=== PATIENT | female | born 1980 | race Caucasian/White ===

== ENCOUNTER 2017-02-15 05:35 | Day surgery (SDC) | payer MEDICAID ==
--- NOTE | 2017-02-14 09:52 | HPF ---
CHIEF COMPLAINT Bilateral hand pain and numbness. HISTORY OF PRESENT ILLNESS This is a 36-year-old female who has a 8-month history of gradual worsening burning pain and numbness in both of her hands. It usually affects her index, middle and ring fingers. Small finger is always spared. It is aggravated with activities such as driving. She frequently wakes up in the middle of the night with the hands numb. She has tried bracing at night which has not improved her symptoms. She has tried stretching exercises and physical therapy. She has never had surgery on her wrists and denies any injury. She does get some radiation of her symptoms up into her elbow. Her past medical history, surgical history, illnesses, medications, allergies, all reviewed and updated in the EMR. Please refer to that REVIEW OF SYSTEMS There was no fever, chills, skin infections, rashes, or seizures. NEUROLOGIC: See HPI. PHYSICAL EXAMINATION GENERAL: Alert and oriented 36-year-old female. UPPER EXTREMITIES: Shows the skin to be intact without lesions. She has good range of motion of both hands, wrists and all of her digits. She has a negative Tinel's sign at the wrist and at the elbow. She has a negative Wartenberg's and Froment signs bilaterally. She has no muscular atrophy in either hand bilaterally. She has a good radial pulse. Has positive median nerve compression test. She has positive Phalen's test. She has no cervical nerve impingement signs. X-RAYS Has normal x-rays of both hands. Nerve conduction studies reviewed. They show mild bilateral carpal tunnel syndrome. ASSESSMENT Bilateral carpal tunnel syndrome. PLAN The patient has failed conservative treatment. Continues to have significant numbness and interruption of her daily function. She tried a steroid injection in the carpal tunnel which was also ineffective. Due to failure of conservative methods, she is being admitted for elective left carpal tunnel release. The procedure and expected recovery has been explained to her. Questions have been answered to her satisfaction. We will proceed with a left carpal tunnel release on 02/15/2017. FADUMO
[~2017-02-15] VITALS: Ht 144.8 cm; Wt 103.8 kg
[~2017-02-15 05:35] MED LIST: ALBU90AE PO; CITA40TA14 PO; FAMO20TA8 PO; FLUT1DIS3 INH; LEVO7.5T7 PO; MONT10TA25 PO; PANT40TA27 PO; ZOLP5TAB8 PO
--- OUTSIDE RECORDS SUMMARY | 2017-02-15 05:40 | XMS REPORT | Continuity of Care Document ---
Author Author [facility] Organization [facility] Address Unknown Phone Unavailable Care Team Providers Care Tie In Hand Name Role Phone JOSE CRUZ MD Primary Care Physician [phone] Insurance Providers Payer Name Policy Number Subscriber Name Relationship [facility] State Plan [id number] Angelo Mcnally 18 Self Advance Directives Directive Response Recorded Date/Time Ordered Resuscitation Status Full Code 05/22/14 1:48pm Resuscitation Documents on File No 07/31/14 3:53pm Problems Medical Problems Problem Onset Date Status Cellulitis Unknown Active Medications Medication Dose Route Sig Days/Qty Instructions Order Date Discontinued Date Status Vits W-Ca,Fe,Fa(<1MG) 1 Tab PO DAILY 09/08/09 06/10/10 Discontinued [Acidphex] PO DAILY 09/08/09 06/10/10 Discontinued [None] 06/10/10 05/12/13 Discontinued Metronidazole 250 Mg PO 05/12/13 08/18/13 Discontinued Prochlorperazine Maleate 10 Mg PO PRN 05/12/13 05/12/13 Discontinued Promethazine Hcl 25 Mg PO PRN 05/12/13 08/18/13 Discontinued Paroxetine Hcl 40 Mg PO DAILY 05/12/13 08/18/13 Discontinued Lansoprazole 30 Mg PO TWICE A DAY 05/12/13 Active Montelukast Sodium 10 Mg PO BEDTIME 08/18/13 Active Venlafaxine Hcl 75 Mg PO TWICE A DAY 05/22/14 Active Docusate Sodium 100 Mg PO DAILY 05/22/14 Active Nortriptyline Hcl 25 Mg PO DAILY 05/22/14 Active Fluticasone/Salmeterol 1 Puff INH TWICE A DAY 07/31/14 Active Fluticasone Propionate 1 [place] NS TWICE A DAY 07/31/14 Active Cetirizine HCl 10 Mg PO DAILY 07/31/14 Active Dicyclomine HCl 10 Mg PO DAILY 07/31/14 Active Bupropion HCl 150 Mg PO TWICE A DAY 08/02/14 Active Social History Social History Problem Response Recorded Date/Time Smoking Status Never smoker 05/22/2014 1:19pm When did patient STOP smoking? AGE 31 07/31/2014 3:33pm Chewing Tobacco Status No 05/22/2014 1:19pm Hx Substance Use No 07/31/2014 3:33pm Hx Alcohol Use No 07/31/2014 3:33pm Has the pt used tobacco in the last 12 months No 07/31/2014 3:33pm Query Response Start Date Stop Date Smoking Status Never smoker Hospital Discharge Instructions No hospital discharge instructions. Plan of Care No plan of care. Functional Status No functional status results. Allergies, Adverse Reactions, Alerts Allergen Type Severity Reaction Status Last Updated Codeine Allergy Unknown DIFFICULTY TO BREATH Active 05/22/14 Immunizations Name Given Type Hx Influenza Vaccination Y FALL 2012 Historical Hx Pneumococcal Vaccination No Historical Hx Influenza Vaccination Y FALL 2012 Historical Vital Signs Acute Vital Signs Vital Response Date/Time Temperature (Fahrenheit) 98.0 deg F (96.8 - 99.1) Temperature (Calculated Celsius) 36.35647 degrees C (36.0 - 37.3) Temperature Source Temporal Pulse Rate (adult) 84 bpm (60 - 100) Respiratory Rate 16 breaths/min (10 - 20) O2 Sat by Pulse Oximetry 98 % (90 - 100) Oxygen Delivery Method Room Air Blood Pressure 108/61 mm Hg Blood Pressure Source Automatic Cuff Height 4 ft 11 in Weight 229 lb Body Mass Index 46.0 kg/m^2 Results Test Source Date Result Interp. Ref. Range Comments Alanine Aminotransferase (ALT/SGPT) August 18, 2013 7:50pm 69 U/L H 9 -52 Albumin August 18, 2013 7:50pm 4.4 G/DL N 3.5-5.0 Albumin/Globulin Ratio August 18, 2013 7:50pm 1.4 RATIO N 1.1-2.2 Alkaline Phosphatase August 18, 2013 7:50pm 62 U/L N 38-126 Amylase Level March 08, 2014 3:01pm 57 U/L N 30-110 Anion Gap August 01, 2014 4:08pm 11 MEQ/L N 5-15 COMMENT UA ALSO NEEDED Aspartate Amino Transf (AST/SGOT) August 18, 2013 7:50pm 38 U/L H 14- 36 BUN/Creatinine Ratio August 01, 2014 4:08pm 16 RATIO N 6-26 COMMENT UA ALSO NEEDED Band Neutrophils # May 12, 2013 7:03pm 0.1 T/MM3 - Band Neutrophils % May 12, 2013 7:03pm 1.0 % N 0-6 Basophils # (Auto) August 01, 2014 4:08pm 0.1 T/MM3 N 0-0.2 COMMENT [facility] TO LAB Basophils # (Manual) October 25, 2009 12:14am 0.0 T/MM3 N 0-0.2 Basophils % (Manual) October 25, 2009 12:14am 0.0 % N 0-2 Basophils (%) (Auto) August 01, 2014 4:08pm 0.5 % N 0-2 COMMENT [facility] PT TO LAB Blood Urea Nitrogen August 01, 2014 4:08pm 11.0 MG/DL N 7-17 COMMENT UA ALSO NEEDED C. difficile Toxin B Gene (PCR) May 12, 2013 7:03pm Negative - If Toxin A is clinically indicated, treat accordingly. Calcium Level August 01, 2014 4:08pm 9.2 MG/DL N 8.4-10.2 COMMENT UA ALSO NEEDED Calculated Osmolality August 01, 2014 4:08pm 269 MOSM/KG N 261-280 COMMENT UA ALSO NEEDED Carbon Dioxide Level August 01, 2014 4:08pm 29 MEQ/L N 22-30 COMMENT UA ALSO NEEDED Chemistry Specimen Hemolysis August 01, 2014 4:08pm < 15 0-25 0-25 : No Hemolysis.26-70: Slight Hemolysis - can falsely elevate K and Urine Protein. 71-285: Moderate Hemolysis - can falsely elevate K, Troponin I, CA 19-9, PTH, CSF GLucose, and Urine Protein, and can falsely decrease Phenytoin. 286-999: Gross Hemolysis - can falsely elevate K, Troponin I, CA 19-9, PTH, CSF Glucose, and Urine Protine, and can falsely decrease Phenytoin. Recommend specimen recollection. Chloride Level August 01, 2014 4:08pm 101 MEQ/L N 98-107 COMMENT UA ALSO NEEDED Cholesterol Level May 26, 2011 11:20am 134 MG/DL N 132-199 Cholesterol/HDL Ratio May 26, 2011 11:20am 3.4 RATIO N 0-4.0 Creatinine August 01, 2014 4:08pm 0.7 MG/DL N 0.7-1.2 COMMENT UA ALSO NEEDED Differential Total Cells Counted September 08, 2009 6:30pm 100 % - Eosinophils # (Auto) August 01, 2014 4:08pm 0.3 T/MM3 N 0-0.5 COMMENT [facility] PT TO LAB Eosinophils # (Manual) October 25, 2009 12:14am 0.3 T/MM3 N 0-0.5 Eosinophils % (Manual) October 25, 2009 12:14am 2.0 % N 0-4 Eosinophils (%) (Auto) August 01, 2014 4:08pm 2.6 % N 0-4 COMMENT [facility] TO LAB Free Thyroxine May 26, 2011 11:20am 1.07 NG/DL N 0.78-2.19 Globulin August 18, 2013 7:50pm 3.2 G/DL N 2.4-3.6 Glomerular Filtration Rate Calc August 01, 2014 4:08pm 96 - COMMENT UA ALSO NEEDED Glucometer August 02, 2014 10:47am 88 mg/dL N 65-110 Glucose Level August 01, 2014 4:08pm 86 MG/DL N 65-110 COMMENT UA ALSO NEEDED Group A Streptococcus Screen June 10, 2010 1:28pm Positive - Has specimen been collected/obtained? Y HDL Cholesterol Direct May 26, 2011 11:20am 39 MG/DL L 40-60 Helicobacter pylori IgG Antibody April 16, 2008 7:21pm Sent out - Hematocrit August 01, 2014 4:08pm 38.3 % N 36-46 COMMENT [facility] TO LAB Hemoglobin August 01, 2014 4:08pm 12.6 GM/DL N 12-16 COMMENT [facility] TO LAB Hepatitis A IgM Antibody November 04, 2011 8:41am Negative - Hepatitis B Core IgM Antibody November 04, 2011 8:41am Negative - Hepatitis B Surface Antigen November 04, 2011 8:41am Negative - Hepatitis C Antibody November 04, 2011 8:41am Negative - Human Chorionic Gonadotropin, Qual May 11, 2008 2:54pm Negative - Icterus Index August 01, 2014 4:08pm < 2 0-7 COMMENT UA ALSO NEEDED Immature Granulocyte # (Auto) August 01, 2014 4:08pm 0.04 T/MM3 H 0.00-0.03 COMMENT [facility] TO LAB Immature Granulocyte % (Auto) August 01, 2014 4:08pm 0.4 % N 0.0-0.5 COMMENT [facility] TO LAB LDL Cholesterol, Calculated May 26, 2011 11:20am 74.8 N 66-159 Lab Scanned Report March 08, 2014 4:52pm LAB TEST FORM REQUEST [id number] - Lipase March 08, 2014 3:01pm 64 U/L N 23-300 Lymphocytes # (Auto) August 01, 2014 4:08pm 3.7 T/MM3 N 1-4.8 COMMENT [facility] TO LAB Lymphocytes # (Manual) May 12, 2013 7:03pm 2.6 T/MM3 N 1-4.8 Lymphocytes % (Manual) May 12, 2013 7:03pm 32.0 % N 23-45 Lymphocytes (%) (Auto) August 01, 2014 4:08pm 33.1 % N 23-45 COMMENT [facility] TO LAB Mean Corpuscular Hemoglobin August 01, 2014 4:08pm 30.7 UUG N 26-34 COMMENT [facility] TO LAB Mean Corpuscular Hemoglobin Concent August 01, 2014 4:08pm 32.9 GM/DL N 31-37 COMMENT [facility] TO LAB Mean Corpuscular Volume August 01, 2014 4:08pm 93.2 UM3 N 80-100 COMMENT [facility] TO LAB Mean Platelet Volume August 01, 2014 4:08pm 9.3 UM3 L 9.4-12.4 COMMENT [facility] TO LAB Monocytes # (Auto) August 01, 2014 4:08pm 0.8 T/MM3 N 0-0.8 COMMENT [facility] TO LAB Monocytes # (Manual) May 12, 2013 7:03pm 0.2 T/MM3 N 0-0.8 Monocytes % (Manual) May 12, 2013 7:03pm 3.0 % N 0-9.0 Monocytes (%) (Auto) August 01, 2014 4:08pm 6.8 % N 0-9.0 COMMENT [facility] TO LAB Neutrophils # (Auto) August 01, 2014 4:08pm 6.3 T/MM3 N 1.8-7.7 COMMENT [facility] TO LAB Neutrophils # (Manual) May 12, 2013 7:03pm 5.2 T/MM3 N 1.8-7.7 Neutrophils % (Manual) May 12, 2013 7:03pm 64.0 % N 33-66 Neutrophils (%) (Auto) August 01, 2014 4:08pm 56.6 % N 33-66 COMMENT [facility] TO LAB Platelet Count August 01, 2014 4:08pm 296 T/MM3 N 130-400 COMMENT [facility] TO LAB Potassium Level August 01, 2014 4:08pm 3.6 MEQ/L N 3.6-5 COMMENT UA ALSO NEEDED RDW Standard Deviation August 01, 2014 4:08pm 41.4 FL N 36.9-50.2 COMMENT [facility] TO LAB Red Blood Count August 01, 2014 4:08pm 4.11 M/MM3 N 4.00-5.20 COMMENT [facility] TO LAB Sodium Level August 01, 2014 4:08pm 141 MEQ/L N 134-144 COMMENT UA ALSO NEEDED Stool Occult Blood May 12, 2013 6:48pm Negative - Has specimen been collected/obtained? Y Stool for White Cells May 12, 2013 7:03pm Negative - Has specimen been collected/obtained? Y Tests Not Done April 27, 2009 3:44pm Not done - Has specimen been collected/obtained? Y Thyroid Stimulating Hormone (TSH) May 26, 2011 11:20am 2.26 MIU/L N 0.47-4.68 Total Bilirubin August 18, 2013 7:50pm 0.30 MG/DL N 0.20-1.30 Total Protein August 18, 2013 7:50pm 7.6 G/DL N 6.3-8.2 Triglycerides Level May 26, 2011 11:20am 101 MG/DL N 35-135 Troponin I March 08, 2014 3:01pm < 0.012 ng/ml 0-0.12 Turbidity August 01, 2014 4:08pm < 20 0-20 COMMENT UA ALSO NEEDED Urine Bacteria August 01, 2014 4:11pm 4+ H - Has specimen been collected/obtained? YCOMMENT SERUM IF UNABLE TO VOID Urine Bilirubin August 01, 2014 4:11pm Negative - Has specimen been collected/obtained? YCOMMENT SERUM IF UNABLE TO VOID Urine Blood August 01, 2014 4:11pm Negative - Has specimen been collected/obtained? YCOMMENT SERUM IF UNABLE TO VOID Urine Collection Type August 01, 2014 4:11pm Cleancatch-midstream - Has specimen been collected/obtained? YCOMMENT SERUM IF UNABLE TO VOID Urine Color August 01, 2014 4:11pm Yellow - Has specimen been collected/obtained? YCOMMENT SERUM IF UNABLE TO VOID Urine Culture Indicated August 01, 2014 4:11pm Cult reflexed &setup - Has specimen been collected/obtained? YCOMMENT SERUM IF UNABLE TO VOID Urine Glucose (UA) August 01, 2014 4:11pm Negative - Has specimen been collected/obtained? YCOMMENT SERUM IF UNABLE TO VOID Urine Ketones August 01, 2014 4:11pm Negative - Has specimen been collected/obtained? YCOMMENT SERUM IF UNABLE TO VOID Urine Leukocyte Esterase August 01, 2014 4:11pm Trace H - Has specimen been collected/obtained? YCOMMENT SERUM IF UNABLE TO VOID Urine Mucus August 01, 2014 4:11pm Present - Has specimen been collected/obtained? YCOMMENT SERUM IF UNABLE TO VOID Urine Nitrite August 01, 2014 4:11pm Positive H - Has specimen been collected/obtained? YCOMMENT SERUM IF UNABLE TO VOID Urine Protein August 01, 2014 4:11pm Negative - Has specimen been collected/obtained? YCOMMENT SERUM IF UNABLE TO VOID Urine RBC August 01, 2014 4:11pm 0-1 /HPF - Has specimen been collected/obtained? YCOMMENT SERUM IF UNABLE TO VOID Urine Specific [place] August 01, 2014 4:11pm 1.025 - Has specimen been collected/obtained? YCOMMENT SERUM IF UNABLE TO VOID Urine Squamous Epithelial Cells August 01, 2014 4:11pm >50 - Has specimen been collected/obtained? YCOMMENT SERUM IF UNABLE TO VOID Urine Turbidity August 01, 2014 4:11pm Cloudy - Has specimen been collected/obtained? YCOMMENT SERUM IF UNABLE TO VOID Urine Urobilinogen August 01, 2014 4:11pm 1.0 EU/DL - Has specimen been collected/obtained? YCOMMENT SERUM IF UNABLE TO VOID Urine WBC August 01, 2014 4:11pm 10-20 /HPF H - Has specimen been collected/obtained? YCOMMENT SERUM IF UNABLE TO VOID Urine pH August 01, 2014 4:11pm 6.0 - Has specimen been collected/ obtained? YCOMMENT SERUM IF UNABLE TO VOID VLDL Cholesterol May 26, 2011 11:20am 20.2 MG/DL N 0-28 White Blood Count August 01, 2014 4:08pm 11.1 T/MM3 H 4.5-11.0 COMMENT [facility] PT TO LAB Stool Culture Stool May 12, 2013 7:03pm Urine Culture Urine, Clean Catch-Midstream August 01, 2014 4:43pm Gram Negative [facility] Procedures Procedure Status Date Provider(s) COLONOSCOPY AND BIOPSY completed 05/23/14 BK BROWN MD, FACS, CWS EGD DIAGNOSTIC BRUSH WASH completed 05/23/14 BK BROWN MD, FACS, CWS Hysteroscopy with hydrothermal ablation of endometrium completed 08/02/14 VIVEK FERGUSON MD Endometrial ablation completed 08/02/14 VIVEK FERGUSON MD
--- OUTSIDE RECORDS SUMMARY | 2017-02-15 05:40 | XMS REPORT | Referral Summary ---
Author Author [facility] Organization [facility] Address Unknown Phone Unavailable Care Team Providers Care Scrub Wheel Operator Name Role Phone Ivory Nair Primary Care Physician [phone] Encounter Date(s): 08/19/16 - 08/19/16 [facility] [address] [place] [address]- Discharge Diagnosis: Anxiety Discharge Diagnosis: Elevated liver enzymes Discharge Diagnosis: Lumbago without sciatica Discharge Diagnosis: Chronic insomnia Discharge Diagnosis: Chronic neck pain Discharge Diagnosis: Fluid retention Discharge Diagnosis: Paresthesia of arm Discharge Disposition: 01-Home or Self Care Attending Physician: Paige Wan APRN Admitting Physician: Paige Wan APRN Vital Signs Most recent to 1 oldest [Reference Range]: Temperature Tympanic 36.7 degC [36.6-38.1 degC] (08/19/16 9:25 AM) Peripheral Pulse 92 bpm Rate [60-100 bpm] (08/19/16 9:25 AM) Blood Pressure 102/68 mmHg [90-140/60-90 mmHg] (08/19/16 9:25 AM) Problem List Condition Effective Dates Status Health Status Informant Allergic Active rhinitis(Confirmed) Anxiety(Confirmed) Active Anxiety state Active (finding)(Confirmed) Chronic ethmoidal Active sinusitis(Confirmed) Gastroesophageal Active reflux disease (disorder)(Confirmed ) Insomnia, Active persistent(Confirmed ) Irritable bowel Active syndrome(Confirmed) Irritable bowel Active syndrome (disorder)(Confirmed ) Elevated liver Active enzymes(Confirmed) Asthma without Active status asthmaticus (disorder)(Confirmed ) Obesity Active (disorder)(Confirmed ) Overweight(Confirmed < 04/26/14 Resolved ) Prediabetes(Confirme Active d) Depression(Confirmed Active ) Seasonal Active allergies(Confirmed) Tonsillitis(Confirme Resolved d) Allergies, Adverse Reactions, Alerts Substance Reaction Severity Status codeine Chest tightness Active Medications Advair Diskus 250 mcg-50 mcg inhalation powder 1 puffs, Inhalation, BID, # 60 Each, 11 Refill(s), Pharmacy: [facility] # [id number] Start Date: 05/26/16 Status: Ordered Ambien 10 mg oral tablet 10 mg 1 tabs, Oral, Bedtime (once a day), as needed for sleep, # 30 tabs, 0 Refill(s) Start Date: 08/09/16 Status: Ordered Bentyl 10 mg oral capsule 10 mg 1 caps, Oral, TID, # 90 caps, 1 Refill(s), Pharmacy: [facility] # [id number], 1 caps Oral TID Start Date: 04/11/15 Status: Ordered LORazepam 0.5 mg oral tablet 0.5 mg 1 tabs, Oral, q12hr, s dillons, # 30 tabs, 0 Refill(s) Start Date: 08/19/16 Status: Ordered Mobic 15 mg oral tablet 15 mg 1 tabs, Oral, Daily, # 30 tabs, 0 Refill(s), Pharmacy: [facility] # [id number], 1 tabs Oral Daily Start Date: 08/19/16 Status: Ordered montelukast 10 mg oral tablet See Instructions, TAKE ONE TABLET BY MOUTH EVERY EVENING, # 90 tabs, 3 Refill(s) , Pharmacy: [facility] #[id number], TAKE ONE TABLET BY MOUTH EVERY EVENING Start Date: 08/02/16 Status: Ordered pantoprazole 40 mg oral delayed release tablet See Instructions, TAKE ONE TABLET BY MOUTH DAILY, # 30 tabs, 11 Refill(s), eRx: [facility] #[id number], TAKE ONE TABLET BY MOUTH DAILY Start Date: 03/30/16 Status: Ordered Pepcid AC Maximum Strength 20 mg oral tablet See Instructions, TAKE ONE TABLET BY MOUTH TWICE A DAY, # 90 tabs, 2 Refill(s), Pharmacy: [facility] #[id number], TAKE ONE TABLET BY MOUTH TWICE A DAY Start Date: 06/16/16 Status: Ordered Ventolin HFA 90 mcg/inh inhalation aerosol See Instructions, INHALE ONE TO TWO PUFFS BY MOUTH EVERY 4 HOURS NEEDED, # 18 g, 2 Refill(s), Pharmacy: [facility] #[id number], INHALE ONE TO TWO PUFFS BY MOUTH EVERY 4 HOURS NEEDED Start Date: 08/02/16 Status: Ordered Wellbutrin SR 200 mg/12 hours oral tablet, extended release 200 mg 1 tabs, Oral, BID, # 60 tabs, 0 Refill(s), Pharmacy: [facility] # [id number], 1 tabs Oral BID Start Date: 04/21/16 Status: Ordered Results Hematology Most recent to 1 oldest [Reference Range]: WBC [4.8-10.8 10.5 10*3/uL 10*3/uL] (08/19/16 10:19 AM) RBC [4.00-5.20] 4.16 (08/19/16 10:19 AM) Hgb [12.0-16.0 12.6 gm/dL gm/dL] (08/19/16 10: AM) Hct [37.0-47.0 %] 38.2 % (08/19/16 10: AM) MCV [82.0-99.0 fL] 91.8 fL (08/19/16 10: AM) MCH [27.0-32.0 pg] 30.3 pg (08/19/16 10:19 AM) MCHC [32.0-36.0 33.0 gm/dL gm/dL] (08/19/16 10:19 AM) RDW [11.5-14.5 %] 13.6 % (08/19/16 10:19 AM) Platelet [150-400 289 10*3/uL 10*3/uL] (08/19/16 10:19 AM) MPV [8.8-14.8 fL] 9.6 fL (08/19/16 10:19 AM) Immature 0.3 % Granulocytes (08/19/16 10:19 AM) [0.0-1.0 %] Neutrophils [51-75 54 % %] (08/19/16 10:19 AM) Lymphocytes [20-46 35 % %] (08/19/16 10:19 AM) Monocytes [4-11 %] 7 % (08/19/16 10:19 AM) Eosinophils [0-4 %] 5 % *HI* (08/19/16 10:19 AM) Basophils [0-2 %] 0 % (08/19/16 10:19 AM) Neutro Absolute 5.65 10*3 [1.90-7.00 10*3] (08/19/16 10:19 AM) Lymph Absolute 3.64 10*3 [0.80-3.30 10*3] *HI* (08/19/16 10:19 AM) [place] Absolute 0.70 10*3 [0.30-1.00 10*3] (08/19/16 10:19 AM) Eos Absolute 0.47 10*3 [0.00-0.50 10*3] (08/19/16 10:19 AM) Baso Absolute 0.04 10*3 [0.00-0.20 10*3] (08/19/16 10:19 AM) Sed Rate [0-23] 22 (08/19/16 10: AM) Chemistry Most recent to 1 oldest [Reference Range]: Sodium Lvl [135-144 138 mEq/L mEq/L] (08/19/16 10: AM) Potassium Lvl 3.9 mEq/L [3.5-5.2 mEq/L] (08/19/16 10:19 AM) Chloride [99-111 105 mEq/L mEq/L] (08/19/16 10: AM) CO2 [22-31 mEq/L] 27 mEq/L (08/19/16 10: AM) AGAP [3-20] 6 (08/19/16 10:19 AM) BUN [7-19 mg/dL] 13 mg/dL (08/19/16 10: AM) Glucose Lvl [70-99 122 mg/dL mg/dL] *HI* (08/19/16 10:19 AM) Creatinine Lvl 0.73 mg/dL [0.57-1.11 mg/dL] (08/19/16 10:19 AM) eGFR [>60 mL/min] >60 mL/min 1 (08/19/16 10: AM) Calcium Lvl 9.3 mg/dL [8.9-10.5 mg/dL] (08/19/16 10:19 AM) Albumin Lvl [3.5-5.0 4.0 gm/dL gm/dL] (08/19/16 10: AM) Total Protein 6.8 gm/dL [6.1-7.7 gm/dL] (08/19/16 10:19 AM) Globulin [1.8-4.0 2.8 gm/dL gm/dL] (08/19/16 10:19 AM) ALT [0-55 U/L] 39 U/L (08/19/16 10:19 AM) AST [5-34 U/L] 22 U/L (08/19/16 10:19 AM) Alk Phos [40-150 68 U/L U/L] (08/19/16 10:19 AM) Bili Total [0.2-1.2 0.4 mg/dL mg/dL] (08/19/16 10:19 AM) Vitamin B12 Lvl 1014 pg/mL [213-816 pg/mL] *HI* (08/19/16 10:19 AM) Folate Lvl [7.0-31.4 7.6 ng/mL ng/mL] (08/19/16 10:19 AM) 1Result Comment: Multiply eGFR results by 1.21 for race. Immunizations Vaccine Date Refusal Reason influenza virus vaccine, inactivated 08/19/16 influenza virus vaccine, inactivated 09/05/15 influenza virus vaccine, inactivated1 08/27/14 influenza virus vaccine, live 08/10/13 influenza virus vaccine, live 09/01/12 pneumococcal 23-polyvalent vaccine 08/17/10 1Location History: See scanned document Procedures Procedure Date Related Diagnosis Body Site Laparoscopic appendectomy1 01/09/16 Colonoscopy and biopsy of colon2 05/23/14 Esophagogastroduodenoscopy3 05/23/14 Bilateral tubal ligation 2009 Tonsillectomy 2009 section4 2006 Cholecystectomy 2001 1acute necrotizing appendicitis and periappendicitis 2Random biopsies without significant inflammatory infiltrates or atypia. If IBS symptoms persist may treat empirically. Repeat colonoscopy age 50 3Normal 43379 Social History Social History Type Response Smoking Status Former smoker; Type: Cigarettes; Tobacco use per day: Less than Pack; Number of years: 3 Assessment and Plan Extracted from: Title: Office Visit Note-multiple Author: Paige Wan AUDITOR APPRAISER Date: concerns Assessment/Plan 1.Anxiety Discussed with the patient I think anxietyand stress are likely the root cause of heroverall symptoms. I think it's reasonable to check some lab today to rule out other possibilities. sedimentation rate, PALOMO , rheumatoid factor, B12 and folate. Encourage healthy diet. Drink lots of water. Encourage physical activity. Continue lorazepam 0.5 mg one by mouth every 12 hours when necessary. Refill provided. Discussed that thesecan be habit forming. Avoiddriving when these are on board as they can cause drowsiness. 2.Chronic neck pain Encouraged her to continue working on the exercises she learned in physical therapy. Recommend heat, muscle rubs, massage. Discussed that I think her headaches are related to stressneck pain. At this point I do not see any need to pursue imagingof her neck. Trial [id number] mg by mouth daily for the next month. Avoid ibuprofenand [id number] Aleve. May take Tylenol. 3.Elevated liver enzymes Mild. CMP today for monitoring. 4.Fluid retention Discussed with patient her sense of fluid retention. No findings on exam that are concerning. Encouraged her to limit her salt intake. 5.Paresthesia of arm Briefly discussed nerve conduction study. If meloxicam is not helpful I think it's reasonable topursue this.If her labs are negativeI will recommend that she wear wrist brace bilaterally mostly at night. 6.Lumbago without sciatica Encouraged stretching, muscle rubs and heat. Meloxicam should help with this also. No radiculopathy or saddle anesthesia concerns. No weakness. 7.Chronic insomnia Continue Ambien. Pleased thatit is effective for her. Counseled on flu vaccine. Given by nursing. Continue other medications without change. Addendum Please add to assessment polyarthralgia and fatigue. Labs as ordered. by Paige Wan APRN on August 19, 2016 10:30:31 CDT
--- OUTSIDE RECORDS SUMMARY | 2017-02-15 05:41 | XMS REPORT ---
Author Author Lopez Sharon Organization [facility] Address [address] [place] [address] Care Team Providers Care Linoleum Layer Helper Name Role Phone Sharon Lopez Unavailable [phone] PROBLEMS Type Condition ICD9-CM Code [id number] Code Onset Dates Condition Status SNOMED Code Problem Generalized anxiety disorder F41.1 Active 14656997 Problem Panic disorder [episodic paroxysmal anxiety] without agoraphobia F41.0 Active 95582982 Assessment Other emt intermediate (current) drug therapy Z79.899 Aug, Active [id number] ALLERGIES No Known Allergies SOCIAL HISTORY No smoking Hx information available PLAN OF CARE VITAL SIGNS MEDICATIONS Medication Instructions Dosage Frequency Start Date End Date Duration Status Ventolin HFA 108 (90 Base) MCG/ACT Inhalation every 4 hrs 2 puffs as needed 4h Active Celexa 10 MG Orally Once a day for Depression and Anxiety for 2 weeks and then 1 tablet (10mg) 0.5 tablet Aug, 30 day(s) Active Gabapentin 300 MG Orally twice daily for one week, then 2 caps BID 1 capsule Aug, 30 day(s) Active BuPROPion HCl (SR) 100 MG Orally Twice a day for 1 week then 1 tablet for 1 week and then stop 1 tablet 0 days Active Meloxicam 15 MG Orally Once a day 1 tablet 24h Active Pantoprazole Sodium 40 MG Orally Once a day 1 tablet 24h Active Lorazepam 0.5 MG Orally Once a day for 5 days and then stop 0.5 tablet at bedtime as needed 5 days Active Fluticasone-Salmeterol 250-50 MCG/DOSE Inhalation Twice a day 1 puff 12h Active Dicyclomine HCl 10 MG Orally As needed 1 capsule Active Zolpidem Tartrate 10 MG Orally Once a day 1 tablet at bedtime as needed 24h 30 days Active Famotidine 20 MG Orally Twice a day 1 tablet 12h Active Montelukast Sodium 10 MG Orally Once a day 1 tablet in the evening 24h Active RESULTS Name Result Date Reference Range In House Lipid Panel 2016-09-14 Cholesterol 172 HDL 48 Triglycerides 91 nHDLc 125 Chol/HDL Ratio 3.6 LDL 106 VLDL 18 T4 Free 2016-09-14 Free T4 0.9 0.7-1.5 TSH 2016-09-14 TSH 2.36 0.35-4.94 PROCEDURES Procedure Date Ordered Related Diagnosis Body Site T4 FREE Sep 14, 2016 TSH Sep 14, 2016 IH LIPID PANEL Sep 14, 2016 IMMUNIZATIONS No Known Immunizations
--- OUTSIDE RECORDS SUMMARY | 2017-02-15 05:41 | XMS REPORT | Referral Summary ---
Author Author [facility] Organization [facility] Address Unknown Phone Unavailable Care Team Providers Care Cant Gang Sawyer Name Role Phone Ivory Nair Primary Care Physician [phone] Encounter VC Date(s): 10/22/16 - 10/22/16 [facility] [address] [place] [address]- Discharge Disposition: 01-Home or Self Care Attending Physician: Maurice Cervantes APRN Admitting Physician: Maurice Cervantes APRN Vital Signs Most recent to 1 oldest [Reference Range]: Temperature Tympanic 36.4 degC [36.6-38.1 degC] *LOW* (10/22/16 3:00 PM) Peripheral Pulse 83 bpm Rate [60-100 bpm] (10/22/16 3:00 PM) Blood Pressure 114/62 mmHg [90-140/60-90 mmHg] (10/22/16 3:00 PM) SpO2 98 % (10/22/16 3:00 PM) Problem List Condition Effective Dates Status Health Status Informant Allergic Active rhinitis(Confirmed) Anxiety(Confirmed) < 04/26/14 Resolved Anxiety state Active (finding)(Confirmed) Chronic ethmoidal Active [...] BID, # 60 Each, 11 Refill(s), Pharmacy: [facility] # [id number] Start Date: 05/26/16 Status: Ordered Ambien 10 mg oral tablet 10 mg 1 tabs, Oral, Bedtime (once a day), as needed for sleep, # 30 tabs, 0 Refill(s) Start Date: 08/09/16 Status: Ordered Bentyl 10 mg oral capsule 10 mg 1 caps, Oral, TID, # 90 caps, 1 Refill(s), Pharmacy: [facility] # [id number], 1 caps Oral TID Start Date: 04/11/15 Status: Ordered CeleXA 10 mg oral tablet 10 mg 1 tabs, Oral, Daily, # 90 tabs, 0 Refill(s) Start Date: 09/21/16 Status: Ordered diclofenac sodium 75 mg oral delayed release tablet 75 mg 1 tabs, Oral, Daily, # 30 tabs, 0 Refill(s), Pharmacy: [facility] # [id number], 1 tabs Oral Daily Start Date: 09/21/16 Status: Ordered gabapentin 300 mg oral capsule 600 mg 2 caps, Oral, BID, per Sharon Lopez APRN at [facility], # 60 caps, 0 Refill(s) Start Date: 09/21/16 Status: Ordered montelukast 10 mg oral tablet See Instructions, TAKE ONE TABLET BY MOUTH EVERY EVENING, # 90 tabs, 3 Refill(s) , Pharmacy: [facility] #[id number], TAKE ONE TABLET BY MOUTH EVERY EVENING Start Date: 08/02/16 Status: Ordered pantoprazole 40 mg oral delayed release tablet See Instructions, TAKE ONE TABLET BY MOUTH DAILY, # 30 tabs, 11 Refill(s), eRx: [facility] #[id number], TAKE ONE TABLET BY MOUTH DAILY Start Date: 03/30/16 Status: Ordered Pepcid AC Maximum Strength 20 mg oral tablet See Instructions, TAKE ONE TABLET BY MOUTH TWICE A DAY, # 90 tabs, 2 Refill(s), Pharmacy: [facility] #[id number], TAKE ONE TABLET BY MOUTH TWICE A DAY Start Date: 06/16/16 Status: Ordered Ventolin HFA 90 mcg/inh inhalation aerosol See Instructions, INHALE ONE TO TWO PUFFS BY MOUTH EVERY 4 HOURS NEEDED, # 18 g, 2 Refill(s), Pharmacy: [facility] #[id number], INHALE ONE TO TWO PUFFS BY MOUTH EVERY 4 HOURS NEEDED Start Date: 08/02/16 Status: Ordered Results No data available for this section Immunizations Vaccine Date Refusal Reason influenza virus [...] treat empirically. Repeat colonoscopy age 50 3Normal [address] Social History Social History Type Response Smoking Status Former smoker; Type: Cigarettes; Tobacco use per day: Less than Pack; Number of years: 3 Assessment and Plan No data available for this section
--- OUTSIDE RECORDS SUMMARY | 2017-02-15 05:41 | XMS REPORT ---
Author Author Lopez Sharon [facility] Address [address] [place] [address] Care Team Providers Care Computer Systems Analyst Name Role Phone Sharon Lopez Unavailable [phone] PROBLEMS Type Condition ICD9-CM Code [id number] Code Onset Dates Condition Status SNOMED Code Problem Major depressive disorder, recurrent episode, mild with anxious distress F33.0 Active 57101949 Problem Anxiety associated with depression F41.8 Active 201837269 Assessment Major depressive disorder, recurrent episode, mild with anxious distress F33.0 Oct, Active 98277911 Problem Generalized anxiety disorder F41.1 Active 05684342 Problem Panic disorder [episodic paroxysmal anxiety] without agoraphobia F41.0 Active 95691236 ALLERGIES Substance Reaction Event Type Date Status Codeine chest hurts, trouble breathing Non Drug Allergy Oct, Active SOCIAL HISTORY No smoking Hx information available PLAN OF CARE VITAL SIGNS Weight 225.8 lbs 2016-11-02 Height 57 in 2016-11-02 Temperature 98.6 degrees Fahrenheit 2016-11-02 BMI 48.86 kg/m2 2016-11-02 Heart Rate 78 /min 2016-11-02 Respiratory Rate 20 /min 2016-11-02 Blood pressure systolic 108 mm Hg 2016-11-02 Blood pressure diastolic 78 mm Hg 2016-11-02 MEDICATIONS Medication Instructions Dosage Frequency Start Date End Date Duration Status Dicyclomine HCl 10 MG Orally As needed 1 capsule Active Celexa 20 MG Orally Once a day for Depression/Anxiety 1.5 tablet Aug, 30 days Active Zolpidem Tartrate 10 MG Orally Once a day 1 tablet at bedtime as needed 24h 30 days Active Montelukast Sodium 10 MG Orally Once a day 1 tablet in the evening 24h Active Ventolin HFA 108 (90 Base) MCG/ACT Inhalation every 4 hrs 2 puffs as needed 4h Active Famotidine 20 MG Orally Twice a day 1 tablet 12h Active Pantoprazole Sodium 40 MG Orally Once a day 1 tablet 24h Active Gabapentin 300 MG Orally twice a day 2 capsule 12h Aug, 30 days Active Fluticasone-Salmeterol 250-50 MCG/DOSE Inhalation Twice a day 1 puff 12h Active RESULTS No Results PROCEDURES Procedure Date Ordered Related Diagnosis Body Site OFFICE VISIT, EST-MOD. COMPLEXITY (25 MIN) Nov 02, 2016 IMMUNIZATIONS No Known Immunizations
--- OUTSIDE RECORDS SUMMARY | 2017-02-15 05:41 | XMS REPORT | Referral Summary ---
Author Author [facility] Organization [facility] Address Unknown Phone Unavailable Care Team Providers Care Waste Recycler Name Role Phone Ivory Nair Primary Care Physician [phone] Encounter Date(s): 09/21/16 - 09/21/16 [facility] [address] [place] [address]- Discharge Diagnosis: Anxiety disorder, unspecified Discharge Diagnosis: Paresthesias/numbness Discharge Disposition: 01-Home or Self Care Attending Physician: Piage Wan APRN Admitting Physician: Paige Wan APRN Vital Signs Most recent to 1 oldest [Reference Range]: Temperature Tympanic 37.0 degC [36.6-38.1 degC] (09/21/16 10:28 AM) Peripheral Pulse 84 bpm Rate [60-100 bpm] (09/21/16 10:28 AM) Respiratory Rate 16 br/min [14-20 br/min] (09/21/16 10:28 AM) Blood Pressure 110/78 mmHg [90-140/60-90 mmHg] (09/21/16 10:28 AM) Problem List Condition Effective Dates Status [...] BID, # 60 Each, 11 Refill(s), Pharmacy: [facility] # [id number] Start Date: 05/26/16 Status: Ordered Ambien 10 mg oral tablet 10 mg 1 tabs, Oral, Bedtime (once a day), as needed for sleep, # 30 tabs, 0 Refill(s) Start Date: 08/09/16 Status: Ordered Bentyl 10 mg oral capsule 10 mg 1 caps, Oral, TID, # 90 caps, 1 Refill(s), Pharmacy: [facility] # [id number], 1 caps Oral TID Start Date: 04/11/15 Status: Ordered CeleXA 10 mg oral tablet 10 mg 1 tabs, Oral, Daily, # 90 tabs, 0 Refill(s) Start Date: 09/21/16 Status: Ordered diclofenac sodium 75 mg oral delayed release tablet 75 mg 1 tabs, Oral, Daily, # 30 tabs, 0 Refill(s), Pharmacy: [facility] # [id number], 1 tabs Oral Daily Start Date: 09/21/16 Status: Ordered gabapentin 300 mg oral capsule 600 mg 2 caps, Oral, BID, per Sharon Lopez APRN at [facility], # 60 caps, 0 Refill(s) Start Date: 09/21/16 Status: Ordered montelukast 10 mg oral tablet See Instructions, TAKE ONE TABLET BY MOUTH EVERY EVENING, # 90 tabs, 3 Refill(s) , Pharmacy: [facility] #[id number], TAKE ONE TABLET BY MOUTH EVERY EVENING Start Date: 08/02/16 Status: Ordered pantoprazole 40 mg oral delayed release tablet See Instructions, TAKE ONE TABLET BY MOUTH DAILY, # 30 tabs, 11 Refill(s), eRx: [facility] #[id number], TAKE ONE TABLET BY MOUTH DAILY Start Date: 03/30/16 Status: Ordered Pepcid AC Maximum Strength 20 mg oral tablet See Instructions, TAKE ONE TABLET BY MOUTH TWICE A DAY, # 90 tabs, 2 Refill(s), Pharmacy: [facility] #[id number], TAKE ONE TABLET BY MOUTH TWICE A DAY Start Date: 06/16/16 Status: Ordered Ventolin HFA 90 mcg/inh inhalation aerosol See Instructions, INHALE ONE TO TWO PUFFS BY MOUTH EVERY 4 HOURS NEEDED, # 18 g, 2 Refill(s), Pharmacy: [facility] #[id number], INHALE ONE TO TWO PUFFS BY MOUTH [...] Bilateral tubal ligation 2009 Tonsillectomy 2009 section4 2005 Cholecystectomy 2001 1acute necrotizing appendicitis and periappendicitis 2Random biopsies without significant inflammatory infiltrates or atypia. If IBS symptoms persist may treat empirically. Repeat colonoscopy age 50 3Normal [id number] Social History Social History Type Response Smoking Status Former smoker; Type: Cigarettes; Tobacco use per day: Less than Pack; Number of years: 3 Assessment and Plan Extracted from: Title: Office Visit Author: Paige Wan APRN Date: 09/21/16 Note-paresthesias Assessment/Plan 1.Paresthesias/numbness Reviewed with the patient multiple lab, imaging and other studies that have been completed to date regarding this evaluation. I think the next step is a nerve conduction study as I suspect she has a component of carpal tunnel syndrome which would explain the numbness and tingling in her hands. Recommend she wear wrist splintsprimarily at night and throughout the day when able. Change from meloxicam to diclofenac one tablet twice a day. Take with food. Approximately 30 minutes is spent with patient discussingher concernsand answering questions. Discussed with the importance of taking care of herself in regards to good nutrition, hydration and exercisewhich will help her overall feel better. Keep appointment with Dr. Blank for further evaluation and management. 2.Anxiety disorder, unspecified Encourage her to continue following with Yuli for medication management encourage counseling. Counseled on flu vaccine. Not interested.
--- OUTSIDE RECORDS SUMMARY | 2017-02-15 05:42 | XMS REPORT | Continuity of Care Document ---
Author Author [facility] Organization [facility] Address Unknown Phone Unavailable Care Team Providers Care Blood Bank Manager Name Role Phone JOSE CRUZ MD Primary Care Physician [phone] Insurance Providers Payer Name Policy Number Subscriber Name Relationship [facility] State Plan [id number] Angelo Mcnally 18 Self Advance Directives Directive Response Recorded Date/Time Ordered Resuscitation Status Full Code 05/22/14 1:48pm Problems Medical Problems Problem Onset Date Status [...] 40 Mg PO DAILY 05/12/13 08/18/13 Discontinued Bupropion Hcl 150 Mg PO TWICE A DAY 05/12/13 Active Albuterol Sulfate 18 Gm IH PRN 05/12/13 Active Salmeterol Xinafoate/Fluticasone TWICE A DAY 05/12/13 Active Lansoprazole 30 Mg PO DAILY 05/12/13 Active Montelukast Sodium 10 Mg PO BEDTIME 30 Qty 08/18/13 Active Fluticasone Furoate 10 Gm NS TWICE A DAY 05/22/14 Active Venlafaxine Hcl 75 Mg PO TWICE A DAY 60 Qty 05/22/14 Active Docusate Sodium 100 Mg PO DAILY 60 Qty 05/22/14 Active Nortriptyline Hcl 25 Mg PO TWICE A DAY 30 Qty 05/22/14 Active Social History Social History Problem Response Recorded Date/Time Smoking Status Never smoker 05/22/2014 1:19pm Chewing Tobacco Status No 05/22/2014 1:19pm Hx Substance Use No 05/22/2014 1:19pm Hx Alcohol Use No 05/22/2014 1:19pm Has the pt used tobacco in the last 12 months No 05/22/2014 1:19pm Query Response Start Date Stop Date Smoking [...] Vital Signs Vital Response Date/Time Temperature (Fahrenheit) 98.1 deg F (96.8 - 99.1) Temperature (Calculated Celsius) 36.80495 degrees C (36.0 - 37.3) Temperature Source Temporal Pulse Rate (adult) 74 bpm (60 - 100) Respiratory Rate 16 breaths/min (10 - 20) O2 Sat by Pulse Oximetry 97 % (90 - 100) Blood Pressure 110/70 mm Hg Blood Pressure Source Automatic Cuff Height 4 ft 11 in Weight 223 lb Body Mass Index 45.0 kg/m^2 Results Test Source Date Result Interp. [...] 57 U/L N 30-110 Anion Gap August 18, 2013 7:50pm 17 MEQ/L H 5-15 Aspartate Amino Transf (AST/SGOT) August 18, 2013 7:50pm 38 U/L H 14- 36 BUN/Creatinine Ratio August 18, 2013 7:50pm 11 RATIO N 6-26 Band Neutrophils # May 12, 2013 7:03pm 0.1 T/MM3 - Band Neutrophils % May 12, 2013 7:03pm 1.0 % N 0-6 Basophils # (Auto) August 18, 2013 7:50pm 0.0 T/MM3 N 0-0.2 Basophils # (Manual) October 25, 2009 12:14am 0.0 T/MM3 N 0-0.2 Basophils % (Manual) October 25, 2009 12:14am 0.0 % N 0-2 Basophils (%) (Auto) August 18, 2013 7:50pm 0.2 % N 0-2 Blood Urea Nitrogen August 18, 2013 7:50pm 8.0 MG/DL N 7-17 C. difficile Toxin B Gene (PCR) May 12, 2013 7:03pm Negative - If Toxin A is clinically indicated, treat accordingly. Calcium Level August 18, 2013 7:50pm 9.2 MG/DL N 8.4-10.2 Calculated Osmolality August 18, 2013 7:50pm 278 MOSM/KG N 261-280 Carbon Dioxide Level August 18, 2013 7:50pm 22 MEQ/L N 22-30 Chemistry Specimen Hemolysis March 08, 2014 3:01pm < 15 0-25 0-25: No Hemolysis.26-70: Slight Hemolysis - can falsely [...] Phenytoin. Recommend specimen recollection. Chloride Level August 18, 2013 7:50pm 105 MEQ/L N 98-107 Cholesterol Level May 26, 2011 11:20am 134 MG/DL N 132-199 Cholesterol/HDL Ratio May 26, 2011 11:20am 3.4 RATIO N 0-4.0 Creatinine August 18, 2013 7:50pm 0.7 MG/DL N 0.7-1.2 Differential Total Cells Counted September 08, 2009 6:30pm 100 % - Eosinophils # (Auto) August 18, 2013 7:50pm 0.4 T/MM3 N 0-0.5 Eosinophils # (Manual) October 25, 2009 12:14am 0.3 T/MM3 N 0-0.5 Eosinophils % (Manual) October 25, 2009 12:14am 2.0 % N 0-4 Eosinophils (%) (Auto) August 18, 2013 7:50pm 3.9 % N 0-4 Free Thyroxine May 26, 2011 11:20am 1.07 NG/DL N 0.78-2.19 Globulin August 18, 2013 7:50pm 3.2 G/DL N 2.4-3.6 Glomerular Filtration Rate Calc August 18, 2013 7:50pm 97 - Glucometer September 09, 2009 8:03am 85 mg/dL N 65-110 Glucose Level August 18, 2013 7:50pm 158 MG/DL H 65-110 Group A Streptococcus Screen June 10, 2010 1:28pm Positive - Has specimen been collected/obtained? Y HDL Cholesterol Direct May 26, 2011 11:20am 39 MG/DL L 40-60 Helicobacter pylori IgG Antibody April 16, 2008 7:21pm Sent out - Hematocrit August 18, 2013 7:50pm 38.4 % N 36-46 Hemoglobin August 18, 2013 7:50pm 13.0 GM/DL N 12-16 Hepatitis A IgM Antibody November 04, 2011 8:41am Negative - Hepatitis B Core IgM Antibody November 04, 2011 8:41am Negative - Hepatitis B Surface Antigen November 04, 2011 8:41am Negative - Hepatitis C Antibody November 04, 2011 8:41am Negative - Human Chorionic Gonadotropin, Qual May 11, 2008 2:54pm Negative - Immature Granulocyte # (Auto) August 18, 2013 7:50pm 0.02 T/MM3 N 0.00-0.03 Immature Granulocyte % (Auto) August 18, 2013 7:50pm 0.2 % N 0.0-0.5 LDL Cholesterol, Calculated May 26, 2011 11:20am 74.8 N 66-159 Lab Scanned Report March 08, 2014 4:52pm LAB TEST FORM REQUEST [id number] - Lipase March 08, 2014 3:01pm 64 U/L N 23-300 Lymphocytes # (Auto) August 18, 2013 7:50pm 2.5 T/MM3 N 1-4.8 Lymphocytes # (Manual) May 12, 2013 7:03pm 2.6 T/MM3 N 1-4.8 Lymphocytes % (Manual) May 12, 2013 7:03pm 32.0 % N 23-45 Lymphocytes (%) (Auto) August 18, 2013 7:50pm 26.4 % N 23-45 Mean Corpuscular Hemoglobin August 18, 2013 7:50pm 31.3 UUG N 26-34 Mean Corpuscular Hemoglobin Concent August 18, 2013 7:50pm 33.9 GM/DL N 31-37 Mean Corpuscular Volume August 18, 2013 7:50pm 92.3 UM3 N 80-100 Mean Platelet Volume August 18, 2013 7:50pm 9.4 UM3 N 9.4-12.4 Monocytes # (Auto) August 18, 2013 7:50pm 0.6 T/MM3 N 0-0.8 Monocytes # (Manual) May 12, 2013 7:03pm 0.2 T/MM3 N 0-0.8 Monocytes % (Manual) May 12, 2013 7:03pm 3.0 % N 0-9.0 Monocytes (%) (Auto) August 18, 2013 7:50pm 6.7 % N 0-9.0 Neutrophils # (Auto) August 18, 2013 7:50pm 5.9 T/MM3 N 1.8-7.7 Neutrophils # (Manual) May 12, 2013 7:03pm 5.2 T/MM3 N 1.8-7.7 Neutrophils % (Manual) May 12, 2013 7:03pm 64.0 % N 33-66 Neutrophils (%) (Auto) August 18, 2013 7:50pm 62.6 % N 33-66 Platelet Count August 18, 2013 7:50pm 290 T/MM3 N 130-400 Potassium Level August 18, 2013 7:50pm 3.4 MEQ/L L 3.6-5 RDW Standard Deviation August 18, 2013 7:50pm 41.4 FL N 36.9-50.2 Red Blood Count August 18, 2013 7:50pm 4.16 M/MM3 N 4.00-5.20 Sodium Level August 18, 2013 7:50pm 144 MEQ/L N 134-144 Stool Occult Blood May 12, 2013 6:48pm [...] 08, 2014 3:01pm < 0.012 ng/ml 0-0.12 Urine Bacteria May 12, 2013 6:48pm Trace H - Has specimen been collected/obtained? Y Urine Bilirubin May 12, 2013 6:48pm 1+ H - Has specimen been collected /obtained? Y Urine Blood May 12, 2013 6:48pm Trace H - Has specimen been collected/ obtained? Y Urine Collection Type May 12, 2013 6:48pm Voided - Has specimen been collected/obtained? Y Urine Color May 12, 2013 6:48pm Yellow - Has specimen been collected /obtained? Y Urine Culture Indicated May 12, 2013 6:48pm Cult reflexed &setup - - -- 05/12/131901 ---UR CULT SET UP previously reported as: CULT REFLEXED &SETUP Urine Glucose (UA) May 12, 2013 6:48pm Negative - Has specimen been collected/obtained? Y Urine Ketones May 12, 2013 6:48pm 1+ H - Has specimen been collected/ obtained? Y Urine Leukocyte Esterase May 12, 2013 6:48pm 2+ H - Has specimen been collected/obtained? Y Urine Mucus May 12, 2013 6:48pm Present - Has specimen been collected/obtained? Y Urine Nitrite May 12, 2013 6:48pm Negative - Has specimen been collected/obtained? Y Urine Protein May 12, 2013 6:48pm 1+ H - Has specimen been collected/ obtained? Y Urine RBC May 12, 2013 6:48pm None seen /HPF - Has specimen been collected/obtained? Y Urine Specific [place] May 12, 2013 6:48pm 1.020 - Has specimen been collected/obtained? Y Urine Squamous Epithelial Cells May 12, 2013 6:48pm 0-5 - CLUE CELLS NOTED. Urine Turbidity May 12, 2013 6:48pm Slt cldy - Has specimen been collected/obtained? Y Urine Urobilinogen May 12, 2013 6:48pm 1 EU/DL - Has specimen been collected/obtained? Y Urine WBC May 12, 2013 6:48pm 1-3 /HPF - Has specimen been collected /obtained? Y Urine pH May 12, 2013 6:48pm 5.0 - Has specimen been collected/ obtained? Y VLDL Cholesterol May 26, 2011 11:20am 20.2 MG/DL N 0-28 White Blood Count August 18, 2013 7:50pm 9.5 T/MM3 N 4.5-11.0 Stool Culture Stool May 12, 2013 7:03pm Urine Culture Urine, Clean Catch Voided May 12, 2013 7:01pm Diphtheroid Bacillus Procedures Procedure Status Date Provider(s) Colonoscopy completed 05/23/14 BK BROWN MD, FACS, CWS EGD (esophagogastroduodenoscopy) completed 05/23/14 BK BROWN MD, FACS, CWS Encounters Encounter Location Date/Time Registered Clinic [facility] 03/08/14 3:08pm
--- OUTSIDE RECORDS SUMMARY | 2017-02-15 05:42 | XMS REPORT | Referral Summary ---
Author Author [facility] Organization [facility] Address Unknown Phone Unavailable Care Team Providers Care Postal Carrier Name Role Phone Ivory Nair Primary Care Physician [phone] Encounter Date(s): 10/27/16 - 10/27/16 [facility] [address] [place] [address]- Discharge Diagnosis: Left knee pain Discharge Disposition: 01-Home or Self Care Attending Physician: Tian Nair MD Admitting Physician: Tian Nair MD Vital Signs Most recent to 1 oldest [Reference Range]: Temperature Tympanic 36.8 degC [36.6-38.1 degC] (10/27/16 3:45 PM) Peripheral Pulse 80 bpm Rate [60-100 bpm] (10/27/16 3:45 PM) Respiratory Rate 16 br/min [14-20 br/min] (10/27/16 3:45 PM) Blood Pressure 114/62 mmHg [90-140/60-90 mmHg] (10/27/16 3:45 PM) Problem List Condition Effective Dates Status [...] BID, # 60 Each, 11 Refill(s), Pharmacy: [facility] # [id number] Start Date: 05/26/16 Status: Ordered Ambien 10 mg oral tablet 10 mg 1 tabs, Oral, Bedtime (once a day), as needed for sleep, # 30 tabs, 0 Refill(s) Start Date: 08/09/16 Status: Ordered Bentyl 10 mg oral capsule 10 mg 1 caps, Oral, TID, # 90 caps, 1 Refill(s), Pharmacy: [facility] # [id number], 1 caps Oral TID Start Date: 04/11/15 Status: Ordered CeleXA 10 mg oral tablet 10 mg 1 tabs, Oral, Daily, # 90 tabs, 0 Refill(s) Start Date: 09/21/16 Status: Ordered diclofenac sodium 75 mg oral delayed release tablet See Instructions, TAKE ONE TABLET BY MOUTH DAILY, # 30 tabs, eRx: [facility] #[id number], TAKE ONE TABLET BY MOUTH DAILY Start Date: 10/26/16 Status: Ordered gabapentin 300 mg oral capsule 600 mg 2 caps, Oral, BID, per Sharon Lopez APRN at [facility], # 60 caps, 0 Refill(s) Start Date: 09/21/16 Status: Ordered montelukast 10 mg oral tablet See Instructions, TAKE ONE TABLET BY MOUTH EVERY EVENING, # 90 tabs, 3 Refill(s) , Pharmacy: [facility] #[id number], TAKE ONE TABLET BY MOUTH EVERY EVENING Start Date: 08/02/16 Status: Ordered pantoprazole 40 mg oral delayed release tablet See Instructions, TAKE ONE TABLET BY MOUTH DAILY, # 30 tabs, 11 Refill(s), eRx: [facility] #[id number], TAKE ONE TABLET BY MOUTH DAILY Start Date: 03/30/16 Status: Ordered Pepcid AC Maximum Strength 20 mg oral tablet See Instructions, TAKE ONE TABLET BY MOUTH TWICE A DAY, # 90 tabs, 2 Refill(s), Pharmacy: [facility] #[id number], TAKE ONE TABLET BY MOUTH TWICE A DAY Start Date: 06/16/16 Status: Ordered Senna S 50 mg-8.6 mg oral tablet 2 tabs, Oral, Bedtime (once a day), # 60 tabs, 3 Refill(s), Pharmacy: [facility] #[id number] Start Date: 10/27/16 Status: Ordered Ventolin HFA 90 mcg/inh inhalation aerosol See Instructions, INHALE ONE TO TWO PUFFS BY MOUTH EVERY 4 HOURS NEEDED, # 18 g, 2 Refill(s), Pharmacy: [facility] #[id number], INHALE ONE TO TWO PUFFS BY MOUTH [...] treat empirically. Repeat colonoscopy age 50 3Normal [id number] Social History Social History Type Response Smoking Status Former smoker; Type: Cigarettes; Tobacco use per day: Less than Pack; Number of years: 3 Assessment and Plan Extracted from: Title: Office Visit Note Author: Tian Nair MD Date: 10/27/16 Assessment/Plan 1.Left knee pain Her x-ray appears normal. I've recommended an orthopedic consult because this is been going on for several months. Not sure she has some chondromalacia orpatella tracking problems. We'll see if we can get her in to see Dr. Henry one of his partnersand make further recommendations from there. No change in treatment she is on diclofenac already. I don't think further steroids would be beneficial. Ordered: Office Visit Level 3 Est 62961 XR Knee Complete Left
--- OUTSIDE RECORDS SUMMARY | 2017-02-15 05:42 | XMS REPORT | Continuity of Care Document ---
Author Author [facility] Organization [facility] Address Unknown Phone Unavailable Allergies Medications Problems Procedures Results Encounters ACCT No. Visit Date/Time Discharge Status Pt. Type Provider Facility Loc./Unit Complaint [id number] 02/21/2014 15:09:00 02/21/2014 23 :59:59 CLS Outpatient [id number] 01/28/2014 11:06:00 01/28/2014 23 :59:59 CLS Outpatient [id number] 01/25/2014 08:21:00 01/25/2014 23 :59:59 CLS Outpatient [id number] 11/22/2013 09:27:00 11/22/2013 23 :59:59 CLS Outpatient [id number] 09/10/2013 13:02:00 09/10/2013 23 :59:59 CLS Outpatient
--- OUTSIDE RECORDS SUMMARY | 2017-02-15 05:44 | XMS REPORT | Continuity of Care Document ---
Author Author [facility] Organization [facility] Address Unknown Phone Unavailable Care Team Providers Care [facility] Teacher Name Role Phone DOMINICK MORE MD Primary Care Physician [phone] Insurance Providers Guarantor Angelo Mcnally Address [address] [place] [address] Email DENIED/12/22/16 Payer [facility] Plan Policy Number [id number] Subscriber's Name UliSteffiAngelo Relationship 18 Self Effective Date 16 Expiration Date 17 Advance Directives Directive Response Recorded Date/Time Ordered Resuscitation Status Full Code 05/22/14 1:48pm Chief Complaint and Reason for Visit Chief Complaint Upper Extremity Pain Reason for Visit Carpal tunnel syndrome Problems Active Problems Medical Problem Onset Date Status Acute appendicitis Unknown Acute Anxiety Unknown Acute Asthma Unknown Acute Cellulitis Unknown Acute Depression Unknown Acute Dyspepsia Unknown Acute GERD (gastroesophageal reflux disease) Unknown Acute IBS (irritable bowel syndrome) Unknown Acute Pre-diabetes Unknown Acute Past Problems Medical Problem Onset Date Carpal tunnel syndrome Unknown Headache Unknown Medications Current Home Medications Medication Dose Units Route Directions Days Qty Instructions Start Date Albuterol Sulfate (Proair Respiclick) 90 Mcg Aer.pow.ba 1-2 Puff Oral Every 4 Hours Prn 01/09/16 Bupropion Hcl (Bupropion Hcl Sr) 100 Mg Tablet.er 200 Mg Oral Every 12 Hours 01/09/16 Dicyclomine Hcl 10 Mg Capsule 10 Mg Oral As Needed 01/09/16 Famotidine 20 Mg Tablet 20 Mg Oral Bedtime 06/24/15 Fluticasone/Salmeterol (Advair 250-50 Diskus) 1 Disk W/Dev Inhaler 1 Puff Inhalation Twice A Day 07/04/16 Hydrocodone/Acetaminophen (Fajardo 5-325 Tablet) 5-325 Tablet 1 Tab Oral Every 4 Hours as needed for Pain/Air Hunger 2 Days 12 Tablet 12/22/16 Montelukast Sodium 10 Mg Tablet 10 Mg Oral Daily 06/24/15 Pantoprazole Sodium 40 Mg Tablet.dr 40 Mg Oral Daily 06/24/15 Zolpidem Tartrate 5 Mg Tablet 10 Mg Oral Bedtime 07/04/16 Past Home Medications Medication Directions Ordered Status Acidphex , Oral Daily 09/08/09 Discontinued Metronidazole (Flagyl) 250 Mg Tablet, 250 Mg Oral 05/12/13 Discontinued None , 06/10/10 Discontinued Paroxetine Hcl 40 Mg Tablet, 40 Mg Oral Daily 05/12/13 Discontinued Vits W-Ca,Fe,Fa(<1MG) () 1 Tab Tablet, 1 Tab Oral Daily 09/08 Discontinued Prochlorperazine Maleate (Compazine) 10 Mg Tablet, 10 Mg Oral as needed 05/12 Discontinued Promethazine Hcl (Phenergan) 25 Mg Tablet, 25 Mg Oral as needed 05/12/13 Discontinued Social History Social History Problem Response Recorded Date/Time Onset Date Status Chewing Tobacco Status No 05/22/2014 1:19pm Not Applicable Not Applicable Hx Substance Use No 12/22/2016 6:30am Not Applicable Not Applicable Hx Alcohol Use No 12/22/2016 6:30am Not Applicable Not Applicable Has the pt used tobacco in the last 12 months No 01/09/2016 6:03am Not Applicable Not Applicable Tobacco Usage none 01/09/2016 7:55am Not Applicable Not Applicable Query Response Start Date Stop Date Smoking Status Never smoker Hospital Discharge Instructions No hospital discharge instructions. Plan of Care Discharge Date 12/22/16 7:01am Disposition 01 DISCHARGED HOME, SELF-CARE Condition at Discharge Improved Instructions/Education Provided Carpal Tunnel Syndrome (GEN) Forms Provided Return to Work/School Permit Prescriptions See Medication Section Referrals ZEYAD FAITH MD Address: [address] [place] [address] [address] [place] [address] DOMINICK MORE MD Order Date: 2 Days Address: [address] [place] [address] [place] [phone] Note: Additional Instructions/Education Return to the ED if your condition changes or worsens in any manner. Follow up as directed. Care Plan and Goals Physician Care Plan Problem: Carpal Tunnel Syndrome Goal: Follow up with primary care provider Instructions: Take medications and follow care plan as discussed/written Functional Status No functional status results. Allergies, Adverse Reactions, Alerts Allergen Type Severity Reaction Status Last Updated Codeine Allergy Unknown DIFFICULTY TO BREATH Active 07/04/16 Immunizations Query Response on File Recorded Date/Time Hx Influenza Vaccination Y Aug 2015 01/09/16 6:03am Hx Pneumococcal Vaccination No 01/09/16 6:03am Hx Influenza Vaccination Y Aug 2015 01/09/16 6:03am Influenza Vaccine Hx Aug 2015 12/22/16 6:30am Tdap Vaccine Hx SKIN INTACT 12/22/16 6:25am Vital Signs Acute Vital Signs Vital Response Date/Time Temperature (Fahrenheit) 97.8 deg F (96.8 - 99.1) 12/22/2016 6:25am Temperature (Calculated Celsius) 36.28098 degrees C (36.0 - 37.3) 12/22/2016 6:25am Pulse Rate (adult) 69 bpm (60 - 100) 12/22/2016 6:25am Respiratory Rate 18 breaths/min (10 - 20) 12/22/2016 6:25am O2 Sat by Pulse Oximetry 96 % (90 - 100) 12/22/2016 6:25am Blood Pressure 123/78 mm Hg 12/22/2016 6:25am Height (Feet) 4 feet 12/22/2016 6:25am Height (Inches) 9.00 inches 12/22/2016 6:25am Weight (Kilograms) 104.200 kg 12/22/2016 6:25am Body Mass Index (BMI) 49.0 12/22/2016 6:25am Results No known relevant diagnostic tests, laboratory data and/or discharge summary. Procedures Procedure Status Date Provider(s) Musc test done w/n test comp Completed 10/20/16 Nrv cndj test 9-10 studies Completed 10/20/16 Mri neck spine w/o dye Completed 11/12/16 Encounters Encounter Location Arrival/Admit Date Discharge/Depart Date Attending Provider Departed Emergency Room [facility] 12/22/16 6:20am 12/22/16 7: 01am NILSA LEWIS DO [facility] 11/12/16 9:54am MAR HADLEY MD Registered Clinic [facility] 10/20/16 2:48pm MAR HADLEY MD Recent Diagnosis
[2017-02-15 05:55] VITALS: BP 110/61; PULSE 77; RESP 16; TEMP 98.6; O2SAT 95
[2017-02-15 05:56] VITALS: Ht 144.8 cm; Wt 103.8 kg
[2017-02-15 06:34] LABS: ANION GAP 10 MEQ/L (5-15); BUN/CREATININE RATIO 26 RATIO (6-26); CALCIUM 8.8 MG/DL (8.4-10.2); CHLORIDE 107 MEQ/L (98-107); CO2 - CARBON DIOXIDE 23 MEQ/L (22-30); CREATININE 0.5 MG/DL (0.7-1.2); GLOMERULAR FILTRATION RATE 140; GLUCOSE 126 MG/DL (65-110); POTASSIUM 4.2 MEQ/L (3.6-5); SODIUM 140 MEQ/L (134-144)
[2017-02-15] MEDS ORDERED: PROPOFOL 500mg 50 ML IV ONE (06:48)
[2017-02-15] MEDS ORDERED: FENTANYL 100mcg/2ml INJECTION ONE (06:50)
--- NOTE | 2017-02-15 06:57 | ANESPREOP ---
Anesthesia Record Date and Time DATE: 02/15/17 TIME: 06:56 Pre-Op Diagnosis left carpal tunnel syndrome Proposed Surgical Procedure LT. CARPAL TUNNEL RELEASE NPO since: 2199 Allergies: Coded Allergies: codeine (Verified Allergy, Unknown, DIFFICULTY TO BREATH, 02/15/17) Ht/Wt/BMI Height: 4 ' 9.00 " Weight: 103.800 kg BMI: 49.5 kg/m2 Vital Signs Date Time Temp Pulse Resp B/P Pulse Ox O2 Delivery O2 Flow Rate FiO2 02/15/17 05:55 98.6 77 16 110/61 95 Room Air Medications Inpatient Medications Current Medications Medications (Trade) Dose Ordered Sig/Bria Start Time Stop Time Status Last Admin Dose Admin Lactated Ringer's (Lactated Ringers) 1,000 ml @ 50 mls/hr Q20H 02/15/17 07:00 02/15/17 06:23 50 MLS/HR Albuterol Sulfate (Proair Respiclick) 90 Mcg Aer.pow.ba, 1-2 PUFF PO Q4HPRN, ( Reported) Last Taken: on Unknown Date & Time Citalopram Hydrobromide (Celexa) 40 Mg Tablet, 1 TAB PO DAILY, (Reported) Last Taken: on 02/14/17729 Famotidine (Famotidine) 20 Mg Tablet, 20 MG PO HS, (Reported) Last Taken: on 02/14/171899 Fluticasone/Salmeterol (Advair 250-50 Diskus) 1 Disk W/Dev Inhaler, 1 PUFF INH BID, (Reported) Last Taken: on 02/14/17729 Levomefolate Calcium (l-Methylfolate) 7.5 Mg Tablet, 1 TAB PO DAILY, (Reported) Last Taken: on 02/14/17729 Montelukast Sodium (Montelukast Sodium) 10 Mg Tablet, 10 MG PO HS, (Reported) Take 1 tablet, by mouth, one time a day (at bedtime). Last Taken: on 02/14/171899 Pantoprazole Sodium (Pantoprazole Sodium) 40 Mg Tablet.dr, 40 MG PO DAILY, (Reported) Last Taken: on 02/15/17 0500 Zolpidem Tartrate (Zolpidem Tartrate) 5 Mg Tablet, 10 MG PO HS, (Reported) Last Taken: on 02/13/17 2100 Currently on Beta Jose: No Medical/Surgical History Anesthesia PMH: Reports: *Diabetes (BORDERLINE- DIET CONTROLLED), Asthma, Obesity, Reflux, Sleep Apnea, Denies: *Angina, *Dyspnea, *Hypertension, *MN, Anesthesia Reactions (NO AIRWAY/INTUBATIONS ISSUES), Arthritis, Blood Transfusion Reac, CHF, COPD, CVA/Stroke/TIA, Cancer, Clotting Problems, Deep Vein Thrombosis, Glaucoma, Hepatitis, Hiatal Hernia, Malignant Hyperthermia, Pacemaker, Pneumonia, Renal Disease, Seizures, Thyroid Disease, Tuberculosis Smoking Status: Former smoker Has pt. smoked today?: No Use Chewing Tobacco?: No Second Hand Exposure: No Substance Use Type: does not use HX of Last Menstrual Period: JANUARY 2017 Past Surgical History Orthopedic Surgeries: No Abdominal Surgeries: Yes - LIBBY, APPY Genitourinary Surgeries: No Cardiac Surgeries: No Endocrine Surgeries: No Reproductive Surgeries: Yes - X2, TUBAL Neurological Surgeries: No Ear Surgeries: No Nose Surgeries: No Throat Surgeries: Yes - T&A Other Surgeries: Yes - COLONOSCOPY, WISDOM TEETH Anesthesia Adverse Reactions: FOUND none Pertinent Findings Laboratory Tests 02/15/17 06:15 Test 02/15/17 06:15 Human Chorionic Gonadotropin, Qual Negative (NEGATIVE) EKG Rhythm: Sinus Rhythm Physical Exam Respiratory: Lungs clear Cardiovascular: FOUND Regular rate, rhythm, FOUND No murmur Airway Assessment Mallampati Score: III TMD: 3 Fingerbreadths Neck Extension: Good Teeth: Chipped Teeth/Crowns Overall Assessment: May Be Diff Intubation ASA: 2 Plan Anesthesia Plan: TIVA Discussion Discussed risks/options/alternatives of anesthesia and questions answered. Patient consents. Nursing pain assessment noted. Present: Family Member Attestation Statement Prior to the delivery of any anesthetic medication, I examined the patient, developed the plan, obtained the patient's consent and discussed the risk and benefits of the procedure with the patient/guardian. BRAYAN WARD CRNA Feb 15, 2017 06:57
[2017-02-15] MEDS ORDERED: LR 1,000 ML IV SCH (07:00)
[2017-02-15] MEDS ORDERED: LIDOCAINE 1% (10mg/ml) 2ml SDV INJ ONE (07:00)
[2017-02-15] MEDS ORDERED: LIDOCAINE 1% (10mg/ml) 30ml SDV ONE (07:02)
[2017-02-15] MEDS ORDERED: BUPIVACAINE 0.25% (2.5mg/ml) INJ 30ml SDV ONE (07:02)
[2017-02-15 07:38] VITALS: BP 110/61; PULSE 67; RESP 18; TEMP 97.4; O2SAT 96
[2017-02-15 07:50] VITALS: BP 130/72; PULSE 68; RESP 22; O2SAT 98
[2017-02-15] MEDS ORDERED: HYDR-4246 PO (07:51)
[2017-02-15] MEDS ORDERED: POLY17PO6 PO (07:51)
[2017-02-15] MEDS ORDERED: CEFAZOLIN 1 GRAM INJECTION IV ONE (08:00)
[2017-02-15 08:05] VITALS: BP 117/64; PULSE 61; RESP 20; O2SAT 98
--- NOTE | 2017-02-15 08:08 | ANESPO ---
Post-Op Note Date 02/15/17 Time: 08:07 Status Pt Participated in Evaluation: Pt participated in person Vital Signs Date Time Temp Pulse Resp B/P Pulse Ox O2 Delivery O2 Flow Rate FiO2 02/15/17 07:50 68 22 130/72 98 Room Air 02/15/17 07:38 97.4 Respiratory Function: Airway patent, Regular respirations Cardiovascular Function: Regular pulse Mental Status: Alert/oriented Pain Level Intensity: 5 Hydration: Taking po fluids Complications during Recovery None apparent Follow-Up Instructions Instructions Per Surgeon BRAYAN WARD CRNA Feb 15, 2017 08:08
[2017-02-15] MEDS ORDERED: TRAMADOL 50 MG TABLET PO PRN (08:15)
[2017-02-15 08:20] VITALS: BP 111/55; PULSE 58; RESP 20; O2SAT 98
[2017-02-15 08:35] VITALS: BP 111/54; PULSE 60; RESP 18; O2SAT 98
--- NOTE | 2017-02-15 09:08 | PDOPERATE ---
Operative Note Date of Opeation 02/15/17 Preoperative Diagnosis Left carpal tunnel syndrome. Postoperative Diagnosis Left carpal tunnel syndrome. Operation Left carpal tunnel release. Surgeon Jewels Roa MD Complications None. Anesthesia TIVA with local. Tourniquet Time Please see Anesthesia Record. Estimated Blood Loss Minimal. Description of Procedure The patient and the operative extremity were identified and marked in the preoperative holding area. The patient was brought back to the operating suite and placed supine on the operating table. The patient was placed under general anesthesia. The left upper extremity was prepped and draped in my normal sterile fashion. A timeout was preformed. The arm was exsanguinated, and the tourniquet was inflated to 250 mmHg. The incision site was injected with 0.25% Marcaine and 1% Lidocaine. A 2.5 cm incision was made just ulnar to the thenar crease.Sharp dissection was carried down through the skin and subcutaneous fat, down to the palmar fascia and down to the transverse carpal ligament which was then excised under direct visualization, first with a scalpel and then completed both proximally and distally with scissors under direct visualization. The wound was then irrigated , and the incision was closed with a 3-0 nylon in simple interrupted fashion. A sterile soft dressing was placed. The tourniquet was let down. The patient was allowed to awaken from general anesthesia and was taken to the recovery room under the care of Anesthesia. The patient tolerated the procedure well. There were no complications. CECI ROA MD Feb 15, 2017 09:08
== END 2017-02-15 08:42 | disposition home or self-care (01) ==
LOC: NSC 05:35
PROVIDERS: ATTEND Orthopaedic Surgery
DX: G56.02 Carpal tunnel syndrome, left upper limb (principal); F41.9 Anxiety disorder, unspecified; F32.9 Major depressive disorder, single episode, unspecified; J45.909 Unspecified asthma, uncomplicated; Z79.899 Other long term (current) drug therapy
CPT/HCPCS: 36415; 64721; 80048; 84703; A6222; J0690; J3010; J7120; S0020

== ENCOUNTER 2017-03-04 05:40 | Day surgery (SDC) | payer MEDICAID ==
[~2017-03-04] VITALS: Ht 144.8 cm; Wt 103.2 kg
[2017-03-04] VITALS (8 sets, daily range): BP systolic 105–125; BP diastolic 55–78; PULSE 64–81; RESP 16–18; TEMP 97.3–98.2; O2SAT 96–100; Ht 144.8 cm; Wt 103.2 kg
--- OUTSIDE RECORDS SUMMARY | 2017-03-04 05:45 | XMS REPORT | Continuity of Care Document ---
Author Author [facility] Organization [facility] Address Unknown Phone Unavailable Care Team Providers Care Round Up Ring Hand Name Role Phone JOSE CRUZ MD Primary Care Physician [phone] Insurance Providers Payer Name Policy Number Subscriber Name Relationship [facility] State Plan [id number] Angelo Mcnally 18 Self Advance Directives Directive [...] A DAY 07/31/14 Active Fluticasone Propionate 1 [place] TWICE A DAY 07/31/14 Active Cetirizine [...] F (96.8 - 99.1) Temperature (Calculated Celsius) 36.88861 degrees C (36.0 - 37.3) Temperature Source [...] 08, 2014 4:52pm LAB TEST FORM REQUEST [id number] - Lipase March 08, 2014 3:01pm 64 [...] SERUM IF UNABLE TO VOID Urine Specific [place] August 01, 2014 4:11pm 1.025 - Has [...]
--- OUTSIDE RECORDS SUMMARY | 2017-03-04 05:46 | XMS REPORT | Continuity of Care Document ---
Author Author [facility] Organization [facility] Address Unknown Phone Unavailable Allergies Medications Problems Procedures Results Encounters ACCT No. Visit Date/Time Discharge Status Pt. Type Provider Facility Loc./Unit Complaint [id number] 02/21/2014 15:09:00 02/21/2014 23 :59:59 CLS Outpatient [id number] 01/28/2014 11:06:00 01/28/2014 23 :59:59 CLS Outpatient [id number] 01/25/2014 08:21:00 01/25/2014 23 :59:59 CLS Outpatient [id number] 11/22/2013 09:27:00 11/22/2013 23 :59:59 CLS Outpatient [id number] 09/10/2013 13:02:00 09/10/2013 23 :59:59 CLS Outpatient
--- OUTSIDE RECORDS SUMMARY | 2017-03-04 05:46 | XMS REPORT | Continuity of Care Document ---
Author Author [facility] Organization [facility] Address Unknown Phone Unavailable Support Name Relationship Address Phone ZEYAD FAITH MD Caregiver [address] [place] [address] Unavailable CECI HENSON MD Caregiver [address] [place] [address] Unavailable ENLLYMATTY BAZAN ([id number]) [place] [address] Insurance Providers Guarantor Angelo Mcnally Address [address] [place] [address] Email DENIED 17 Payer [facility] [employer] Plan Policy Number [id number] Subscriber's Name UliSteffiAngelo Relationship 18 Self Effective Date 17 Expiration Date 17 Advance Directives Directive Response Recorded Date/Time Ordered Resuscitation Status Full Code 05/22/14 1:48pm Resuscitation Documents on File No 02/15/17 6:06am DPOA for Healthcare Only No 02/15/17 6:06am Living Will No 02/15/17 6:06am Problems Active Problems Medical Problem Onset Date Status Acute appendicitis Unknown Acute Anxiety Unknown Acute Asthma Unknown Acute Carpal tunnel syndrome Unknown Cellulitis Unknown Acute Depression Unknown Acute Dyspepsia [...] Puff Oral Every 4 Hours Prn 01/09/16 Citalopram Hydrobromide (Celexa) 40 Mg Tablet 1 Tab Oral Daily Famotidine 20 Mg Tablet 20 Mg Oral Bedtime 06/24/15 Fluticasone/Salmeterol (Advair 250-50 Diskus) 1 Disk W/Dev Inhaler 1 Puff Inhalation Twice A Day 08/14/16 Hydrocodone/Acetaminophen ([place] 5-325 Tablet) 5-325 Tablet 1-2 Tab Oral Every 6 Hours as needed for Pain 20 Tablet This medication contains Tylenol , do not take more than 3,000 mg of Tylenol in a 24 hr period. 02/15/17 Levomefolate Calcium (L-Methylfolate) 7.5 Mg Tablet 1 Tab Oral Daily 30 02/14/17 Montelukast Sodium 10 Mg Tablet 10 Mg Oral Bedtime Take 1 tablet, by mouth, one time a day (at bedtime). 02/14/17 Pantoprazole Sodium 40 Mg Tablet.dr 40 Mg Oral Daily 06/24/15 Polyethylene Glycol 3350 (Miralax) 17 Gm Powd.pack 17 G Oral Daily as needed for Constipation 1 Bottle Take 17 Grams (1 capful), by mouth, once a day. 02/15/17 Zolpidem Tartrate 5 Mg Tablet 10 Mg [...] Problem Response Recorded Date/Time Onset Date Status Reason for Hospitalization left carpal tunnel 02/15/2017 7:55am Not Applicable Not Applicable Chewing Tobacco Status No 05/22/2014 1:19pm Not Applicable Not Applicable Hx Substance Use No 02/15/2017 6:07am Not Applicable Not Applicable Hx Alcohol Use Y VERY SELDOM 02/15/2017 6:07am Not Applicable Not Applicable Has the pt used tobacco in the last 12 months No 02/15/2017 6:07am Not Applicable Not Applicable Tobacco Usage none 01/09/2016 7:55am Not Applicable Not Applicable Query Response Start Date Stop Date Smoking Status Never smoker Hospital Discharge Instructions Instructions: Care Instructions: I was in the hospital because (patient own words): LEFT CARPAL TUNNEL SURGERY Discharge Diet: Resume your normal diet as tolerated. Discharge Activity: -Exercises are to be performed 2-3 times daily. -DO NOT lift any weight heavier than a coffee cup -Gentle range of motion of the wrist Follow Up Appointments: Follow up as scheduled. Pending Lab / Results: No Pending Lab Patient Instructions: DO NOT DRIVE, OPERATE MACHINERY, DRINK ALCOHOL, OR SIGN IMPORTANT PAPERS FOR 24 HOURS OR WHILE TAKING PAIN MEDICATIONS. Expected Signs/Symptoms: There will be pain at the incision site. Expect possible wrap swelling of the fingers. The honey may be loosened if it feels too tight. Call your physician if you are unable to feel or move your fingers. Notify Physician If: You should contact our office if you develop significant drainage from the surgical incision, redness, or fever about 102 degrees. During Business Hours:: Contact the office at [phone] After Business Hours:: After office hours, please call [facility] at [phone] and have the rapid extractor operator page the physician. Pain Management/Treatment: You will be given a prescription for pain medication. You will have post-surgical pain for the first week after surgery. An anti-inflammatory medication may also be taken (mobic, ibuprofen, or naproxen). Wound/Incision Care: Keep the dressing clean and dry. On post-op day #4 you may remove the dressing. The incision needs to stay dry until you follow up with your physician. You may shower. DO NOT apply creams or ointments (bacitracin, triple antibiotic) to the incisions. Do not soak the wrist in water or go swimming until your sutures are removed. Condition at time of discharge: Good Plan of Care Discharge Date 02/15/17 8:42am Instructions/Education Provided [facility] Janina Carpal Tunnel Instructions Prescriptions See Medication Section Functional Status Query Response Date Recorded Ability to complete ADL's impeded by Impaired Mobility February 15, 2017 6:06am Allergies, Adverse Reactions, Alerts Allergen Type Severity Reaction Status Last Updated Codeine Allergy Unknown DIFFICULTY TO BREATH Active 02/15/17 Immunizations Query Response on File Recorded Date/Time Hx Influenza Vaccination Y Aug 2016 02/15/17 6:07am Hx Pneumococcal Vaccination Yes 02/15/17 6:07am Hx Influenza Vaccination Y Aug 2016 02/15/17 6:07am Influenza Vaccine Hx Aug 2015 12/22/16 6:30am Tdap Vaccine Hx SKIN INTACT 12/22/16 6:25am Vital Signs Acute Vital Signs Vital Response Date/Time Temperature (Fahrenheit) 97.4 deg F (96.8 - 99.1) 02/15/2017 7:38am Temperature (Calculated Celsius) 36.28071 degrees C (36.0 - 37.3) 02/15/2017 7:38am Temperature Source Temporal 02/15/2017 7:38am Pulse Rate (adult) 60 bpm (60 - 100) 02/15/2017 8:35am Respiratory Rate 18 breaths/min (10 - 20) 02/15/2017 8:35am O2 Sat by Pulse Oximetry 98 % (90 - 100) 02/15/2017 8:35am Oxygen Delivery Method Room Air 02/15/2017 8:35am Blood Pressure 111/54 mm Hg 02/15/2017 8:35am Blood Pressure Source Automatic Cuff 02/15/2017 8:35am Height (Feet) 4 feet 02/15/2017 5:56am Height (Inches) 9.00 inches 02/15/2017 5:56am Weight (Kilograms) 103.800 kg 02/15/2017 5:56am Body Mass Index (BMI) 49.5 02/15/2017 5:56am Results Laboratory Results Test Name Result Units Flags Reference Collection Date/Time Result Date/ Time Comments White Blood Count 6.9 T/MM3 4.5-11.0 12/30/2016 3:00pm 12/30/2016 3: 15pm Red Blood Count 4.26 M/MM3 4.00-5.20 12/30/2016 3:00pm 12/30/2016 3: 15pm Hemoglobin 12.9 GM/DL 12-16 12/30/2016 3:00pm 12/30/2016 3:15pm Hematocrit 39.3 % 36-46 12/30/2016 3:00pm 12/30/2016 3:15pm Mean Corpuscular Volume 92.3 UM3 80-100 12/30/2016 3:00pm 12/30/2016 3: 15pm Mean Corpuscular Hemoglobin 30.3 UUG 26-34 12/30/2016 3:00pm 2016 3:15pm Mean Corpuscular Hemoglobin Concent 32.8 GM/DL 31-37 12/30/2016 3:00pm 12/30/2016 3:15pm RDW Standard Deviation 41.8 FL 36.9-50.2 12/30/2016 3:00pm 12/30/2016 3 :15pm Platelet Count 231 T/MM3 130-400 12/30/2016 3:00pm 12/30/2016 3:15pm Mean Platelet Volume 9.6 UM3 9.4-12.4 12/30/2016 3:00pm 12/30/2016 3: 15pm Neutrophils (%) (Auto) 58.0 % 33-66 12/30/2016 3:00pm 12/30/2016 3: 15pm Lymphocytes (%) (Auto) 30.7 % 23-45 12/30/2016 3:00pm 12/30/2016 3: 15pm Monocytes (%) (Auto) 8.9 % 0-9.0 12/30/2016 3:00pm 12/30/2016 3:15pm Eosinophils (%) (Auto) 1.9 % 0-4 12/30/2016 3:00pm 12/30/2016 3:15pm Basophils (%) (Auto) 0.4 % 0-2 12/30/2016 3:00pm 12/30/2016 3:15pm Immature Granulocyte % (Auto) 0.1 % 0.0-0.5 12/30/2016 3:00pm 2016 3:15pm Absolute Neutrophils (auto) 4.0 T/MM3 1.8-7.7 12/30/2016 3:00pm 2016 3:15pm Absolute Lymphocytes (auto) 2.1 T/MM3 1-4.8 12/30/2016 3:00pm 2016 3:15pm Absolute Monocytes (auto) 0.6 T/MM3 0-0.8 12/30/2016 3:00pm 12/30/2016 3:15pm Absolute Eosinophils (auto) 0.1 T/MM3 0-0.5 12/30/2016 3:00pm 2016 3:15pm Absolute Basophils (auto) 0.0 T/MM3 0-0.2 12/30/2016 3:00pm 12/30/2016 3:15pm Absolute Immature Granulocyte (auto 0.01 T/MM3 0.00-0.03 12/30/2016 3: 00pm 12/30/2016 3:15pm Icterus Index < 2 0-7 02/15/2017 6:1502/15/2017 6:34am Chemistry Specimen Hemolysis < 15 0-25 02/15/2017 6:1502/15/2017 6 :34am 0-25: Specimen Exhibited No Hemolysis. Turbidity < 20 0-20 02/15/2017 6:15am 02/15/2017 6:34am Sodium Level 140 MEQ/L 134-144 02/15/2017 6:1502/15/2017 6:34am Potassium Level 4.2 MEQ/L 3.6-5 02/15/2017 6:1502/15/2017 6:34am Chloride Level 107 MEQ/L 98-107 02/15/2017 6:1502/15/2017 6:34am Carbon Dioxide Level 23 MEQ/L 22-30 02/15/2017 6:1502/15/2017 6: 34am Anion Gap 10 MEQ/L 5-15 02/15/2017 6:1502/15/2017 6:34am Blood Urea Nitrogen 13.0 MG/DL 7-17 02/15/2017 6:1502/15/2017 6: 34am Creatinine 0.5 MG/DL L 0.7-1.2 02/15/2017 6:1502/15/2017 6:34am BUN/Creatinine Ratio 26 RATIO 6-26 02/15/2017 6:1502/15/2017 6:34am Glomerular Filtration Rate Calc 140 02/15/2017 6:1502/15/2017 6: 34am Glucose Level 126 MG/DL H 65-110 02/15/2017 6:1502/15/2017 6:34am Calculated Osmolality 271 MOSM/KG 261-280 02/15/2017 6:1502/15/2017 6:34am Calcium Level 8.8 MG/DL 8.4-10.2 02/15/2017 6:1502/15/2017 6:34am Procedures Procedure Status Date Provider(s) Emergency dept visit Completed 12/22/16 Carpal tunnel release, left Completed 02/15/17 CECI HENSON MD Encounters Encounter Location Arrival/Admit Date Discharge/Depart Date Attending Provider Departed [facility] 02/15/17 5:35am 02/15/17 8: 42am CECI HENSON MD Registered Referred [facility] 12/30/16 3:09pm ZEYAD FAITH MD Departed Emergency Room [facility] 12/22/16 6:20am 12/22/16 7: 01am NILSA LEWIS DO
--- OUTSIDE RECORDS SUMMARY | 2017-03-04 05:47 | XMS REPORT | Continuity of Care Document ---
Author Author [facility] Organization [facility] Address Unknown Phone Unavailable Care Team Providers Care Cad Design Engineer Name Role Phone JOSE CRUZ MD Primary Care Physician [phone] Insurance Providers Payer Name Policy Number Subscriber Name Relationship [facility] State Plan [id number] Angelo Mcnally 18 Self Advance Directives Directive [...] F (96.8 - 99.1) Temperature (Calculated Celsius) 36.34749 degrees C (36.0 - 37.3) Temperature Source [...] 08, 2014 4:52pm LAB TEST FORM REQUEST [id number] - Lipase March 08, 2014 3:01pm 64 [...] Has specimen been collected/obtained? Y Urine Specific [place] May 12, 2013 6:48pm 1.020 - Has [...] CWS Encounters Encounter Location Date/Time Registered Clinic [facility] 03/08/14 3:08pm
[2017-03-04 06:30] LABS: ANION GAP 15 MEQ/L (5-15); BUN/CREATININE RATIO 22 RATIO (6-26); CALCIUM 8.8 MG/DL (8.4-10.2); CHLORIDE 106 MEQ/L (98-107); CO2 - CARBON DIOXIDE 23 MEQ/L (22-30); CREATININE 0.6 MG/DL (0.7-1.2); GLOMERULAR FILTRATION RATE 113; GLUCOSE 135 MG/DL (65-110); POTASSIUM 3.6 MEQ/L (3.6-5); SODIUM 144 MEQ/L (134-144)
[2017-03-04] MEDS ORDERED: LIDOCAINE 1% (10mg/ml) 30ml SDV ONE (06:39)
[2017-03-04] MEDS ORDERED: BUPIVACAINE 0.25% (2.5mg/ml) INJ 30ml SDV ONE (06:40)
--- NOTE | 2017-03-04 06:49 | ANESPREOP ---
Anesthesia Record Date and Time DATE: 03/04/17 TIME: 06:48 Pre-Op Diagnosis right carpal tunnel Proposed Surgical Procedure RT CTR NPO since: 2199 Allergies: Coded Allergies: codeine (Verified Allergy, Unknown, DIFFICULTY TO BREATH, 02/15/17) Ht/Wt/BMI Height: 4 ' 9.00 " Weight: 103.200 kg BMI: 49.2 kg/m2 Vital Signs Date Time Temp Pulse Resp B/P Pulse Ox O2 Delivery O2 Flow Rate FiO2 03/04/17 06:07 76 16 03/04/17 05:55 98.2 116/72 97 Room Air Medications Inpatient Medications Current Medications Medications (Trade) Dose Ordered Sig/Bria Start Time Stop Time Status Last Admin Dose Admin Lactated Ringer's (Lactated Ringers) 1,000 ml @ 50 mls/hr Q20H 03/04/17 07:00 03/04/17 06:33 50 MLS/HR Albuterol Sulfate (Proair Respiclick) 90 Mcg Aer.pow.ba, 1-2 PUFF PO Q4HPRN, ( Reported) Last Taken: on 01/19/17 Citalopram Hydrobromide (Celexa) 40 Mg Tablet, 1 TAB PO DAILY, (Reported) Last Taken: on 03/03/17 0800 Famotidine (Famotidine) 20 Mg Tablet, 20 MG PO HS, (Reported) Last Taken: on 03/03/17 2100 Fluticasone/Salmeterol (Advair 250-50 Diskus) 1 Disk W/Dev Inhaler, 1 PUFF INH BID, (Reported) Last Taken: on 03/03/172099 Levomefolate Calcium (l-Methylfolate) 7.5 Mg Tablet, 1 TAB PO DAILY, (Reported) Last Taken: on 03/03/17 0800 Montelukast Sodium (Montelukast Sodium) 10 Mg Tablet, 10 MG PO HS, (Reported) Take 1 tablet, by mouth, one time a day (at bedtime). Last Taken: on 03/03/17 2100 Pantoprazole Sodium (Pantoprazole Sodium) 40 Mg Tablet.dr, 40 MG PO DAILY, (Reported) Last Taken: on 03/04/17 0300 Zolpidem Tartrate (Zolpidem Tartrate) 5 Mg Tablet, 10 MG PO HS, (Reported) Last Taken: on 03/02/17 2100 Currently on Beta Jose: No Medical/Surgical History Anesthesia PMH: Reports: *Diabetes (BORDERLINE- DIET CONTROLLED), Asthma (ON MEDS), Obesity, Reflux (ON MEDS), Denies: *Angina, *Dyspnea, *Hypertension, *ME , Anesthesia Reactions (NO AIRWAY/INTUBATIONS ISSUES), Arthritis, Blood Transfusion Reac, CHF, COPD, CVA/Stroke/TIA, Cancer, Clotting Problems, Deep Vein Thrombosis, Glaucoma, Hepatitis, Hiatal Hernia, Malignant Hyperthermia, Pacemaker, Pneumonia, Renal Disease, Seizures, Sleep Apnea, Thyroid Disease, Tuberculosis Smoking Status: Never smoker Has pt. smoked today?: No Use Chewing Tobacco?: No Second Hand Exposure: No Substance Use Type: does not use Past Surgical History Orthopedic Surgeries: No Abdominal Surgeries: Yes - LIBBY, APPY Genitourinary Surgeries: No Cardiac Surgeries: No Endocrine Surgeries: No Reproductive Surgeries: Yes - X2, TUBAL Neurological Surgeries: Yes - LT CTR Ear Surgeries: No Nose Surgeries: No Throat Surgeries: Yes - T&A Other Surgeries: Yes - COLONOSCOPY, WISDOM TEETH Anesthesia Adverse Reactions: FOUND none Pertinent Findings Laboratory Tests 03/04/17 06:14 Test 03/04/17 06:14 Human Chorionic Gonadotropin, Qual Negative (NEGATIVE) EKG Rhythm: Sinus Rhythm Physical Exam Respiratory: Lungs clear Cardiovascular: FOUND Regular rate, rhythm, FOUND No murmur Airway Assessment Mallampati Score: III TMD: 3 Fingerbreadths Neck Extension: Good Overall Assessment: May Be Diff Intubation ASA: 2 Plan Anesthesia Plan: TIVA Discussion Discussed risks/options/alternatives of anesthesia and questions answered. Patient consents. Nursing pain assessment noted. Attestation Statement Prior to the delivery of any anesthetic medication, I examined the patient, developed the plan, obtained the patient's consent and discussed the risk and benefits of the procedure with the patient/guardian. BRAYAN WARD CRNA Mar 04, 2017 06:49
[2017-03-04] MEDS ORDERED: PROPOFOL 500mg 50 ML IV ONE (06:58)
[2017-03-04] MEDS ORDERED: LR 1,000 ML IV SCH (07:00)
[2017-03-04] MEDS ORDERED: LIDOCAINE 1% (10mg/ml) 2ml SDV INJ ONE (07:00)
[2017-03-04] MEDS ORDERED: FENTANYL 100mcg/2ml INJECTION ONE (07:01)
[2017-03-04] MEDS ORDERED: CEFAZOLIN 1 GRAM INJECTION IV ONE (07:15)
--- NOTE | 2017-03-04 07:56 | ANESPO ---
Post-Op Note Date 03/04/17 Time: 07:55 Status Pt Participated in Evaluation: Pt participated in person Vital Signs Date Time Temp Pulse Resp B/P Pulse Ox O2 Delivery O2 Flow Rate FiO2 03/04/17 07:39 97.3 77 18 125/78 100 Mask 6.00 Respiratory Function: Airway patent, Regular respirations Cardiovascular Function: Regular pulse Mental Status: Alert/oriented Pain Level Intensity: 0 Hydration: Taking po fluids Complications during Recovery None apparent Follow-Up Instructions Instructions Per Surgeon BRAYAN WARD CRNA Mar 04, 2017 07:56
[2017-03-04] MEDS ORDERED: TRAMADOL 50 MG TABLET PO PRN (08:15)
[2017-03-04] MEDS ORDERED: TRAM50TA53 PO (08:39)
--- NOTE | 2017-03-04 08:43 | PDOPERATE ---
Operative Note Date of Opeation 03/04/17 Preoperative Diagnosis Right carpal tunnel syndrome. Postoperative Diagnosis Right carpal tunnel syndrome. Operation Right carpal tunnel release. Surgeon Jewels Roa MD Complications None. Anesthesia TIVA with local. Tourniquet Time Please see Anesthesia Record. Estimated Blood Loss Minimal. Description of Procedure The patient and the operative extremity were identified and marked in the preoperative holding area. The patient was brought back to the operating suite and placed supine on the operating table. The patient was placed under general anesthesia. The right upper extremity was prepped and draped in my normal sterile fashion. A timeout was preformed. The arm was exsanguinated, and the tourniquet was inflated up to 250 mmHg. The incision site was injected with 0.25% Marcaine and 1% Lidocaine. A 2.5 cm incision was made just ulnar to the thenar crease.Sharp dissection was carried down through the skin and subcutaneous fat, down to the palmar fascia and down to the transverse carpal ligament which was then excised under direct visualization, first with a scalpel and then completed both proximally and distally with scissors under direct visualization until all tight bands were released around the nerve. The wound was then irrigated, and the incision was closed with a 3-0 nylon in simple interrupted fashion. A sterile soft dressing was placed. The tourniquet was let down. The patient was allowed to awaken from general anesthesia and was taken to the recovery room under the care of Anesthesia. The patient tolerated the procedure well. There were no complications. CECI ROA MD Mar 04, 2017 08:43
--- NOTE | 2017-03-04 15:57 | NUR ---
Prescription Pt called [facility] stating that she went to pharmacy and pain medication had not been called in. This RN called preferred pharmacy on file to verify. No script had been called in. This RN called Tramadol as ordered on discharge in at this time. Notification to pt at this time. Pt verbalized understanding.
== END 2017-03-04 08:57 | disposition home or self-care (01) ==
LOC: NSC 05:40
PROVIDERS: ATTEND Orthopaedic Surgery
DX: G56.01 Carpal tunnel syndrome, right upper limb (principal); J45.909 Unspecified asthma, uncomplicated; F32.9 Major depressive disorder, single episode, unspecified; F41.9 Anxiety disorder, unspecified; Z79.899 Other long term (current) drug therapy; Z79.51 Long term (current) use of inhaled steroids; Z88.6 Allergy status to analgesic agent; Z87.891 Personal history of nicotine dependence; Z90.49 Acquired absence of other specified parts of digestive tract
CPT/HCPCS: 36415; 64721; 80048; 84703; A6222; J3010; J7120; S0020

== ENCOUNTER → 2017-03-17 | Outpatient (CLI) | payer MEDICAID ==
[~2017-03-17] MED LIST changes: +TRAM50TA53 PO
--- NOTE | 2017-03-17 10:10 | DI ---
Indication: ITS.REASON: M25.561 Pain in right knee PROCEDURE: MRI KNEE RIGHT W/O CONTRAST: Encounter: Initial Comparison: None Technique: Multiplanar multisequence MR imaging of the right knee was performed without contrast. Findings: The lateral meniscus is intact. Medial meniscus is also intact. The ACL and PCL are intact. The MCL and lateral collateral ligament complex are intact. Extensor mechanism is maintained. No acute fracture. Bone marrow signal intensity is normal. The cartilage of the medial compartment shows a small area of partial-thickness loss in the posterior weightbearing surface of the femoral condyle. The lateral compartment cartilage is maintained. Patellofemoral compartment cartilage shows a small defect in the median ridge. No joint effusion or Peterson's cyst. Muscular signal intensity is normal. Impression: No meniscal or ligamentous injury. Small areas of chondromalacia. .
== END ==
LOC: IMA 08:45
PROVIDERS: ATTEND Orthopaedic Surgery
DX: D16.21 Benign neoplasm of long bones of right lower limb (principal); M22.41 Chondromalacia patellae, right knee; M25.561 Pain in right knee